=== PATIENT | female | born 1950 | race Caucasian/White ===

== ENCOUNTER 2017-10-04 11:55 | Emergency (ER) | payer MEDICARE, OTHER, SELFPAY ==
[2017-10-04 11:56] VITALS: BP 179/91; PULSE 106; RESP 20; TEMP 36.6; O2SAT 98; BMI 26.7
--- NOTE | 2017-10-04 12:02 | RAD_ITS ---
STUDY: X-RAY CHEST REASON FOR EXAM: Female, 67 years old. chest discomfort x several days, irregular heart beat, high blood pressure TECHNIQUE: Single AP portable view of the chest. COMPARISON: None. FINDINGS: The lungs are clear and expanded. There is no demonstrated pleural abnormality. Normal size heart. Normal mediastinum and nichelle. Normal visualized pulmonary arteries. There is atherosclerotic tortuosity of the aortic arch and descending thoracic aorta. Normal visualized thoracic spine. Normal visualized ribs, clavicles, and shoulders. There is no demonstrated abnormality of the visualized soft tissue structures of the upper abdomen. RAD/Chest 1 View (Portable) IMPRESSION: No acute disease is demonstrated. Electronically Signed: Sintia Atkins MD at 13:13 EST , Service support ,
--- NOTE | 2017-10-04 12:02 | EKG12_ITS ---
Test Reason : CP Blood Pressure : / mmHG Vent. Rate : 101 BPM Atrial Rate : 101 BPM P-R Int : 178 ms QRS Dur : 090 ms QT Int : 360 ms P-R-T Axes : 045 -10 040 degrees QTc Int : 466 ms Sinus tachycardia with occasional Premature ventricular complexes Otherwise normal ECG Confirmed by RIDGE CUNNINGHAM, ANDREA ([id number]), publications editor ANTIONETTE CALIXTO ([id number]) on 10/07/2017 2:04:42 PM Referred By: ARIANA Confirmed By:ANDREA SABILLON MD
[2017-10-04 12:04] VITALS: O2SAT 98
[2017-10-04 12:15] LABS: Absolute Lymphocyte Count 1.61 X10^3/ul (0.83-4.51); Absolute Neutrophil Count 2.5 X10^3/uL (2.0-7.7); Basophil# 0.02 X10^3/uL; Basophil% 0.4 % (0-1); Eosinophils% 2.1 % (0-5); Hemoglobin 15.1 g/dl (12.0-15.0); Lymphocyte # 1.61 X10^3/ul (4.0); Lymphocyte % 34.3 % (19-41); Mean Corp Hgb Conc 34.3 g/gl (32-36); Mean Corpuscular Hgb 30.7 pg (27.0-32.0); Mean Corpuscular Volume 89.4 fL (81-99); Mean Platelet Vol. 10.7 fl (6.2-12.0); Monocyte# 0.48 X10^3/uL; Monocyte% 10.2 % (0-10); Neutrophil # 2.47 X10^3/uL (2.7-7.7); Neutrophil % 52.8 % (47-70); Platelet Count 162 K/mm3 (150-450); RBC Distribution Width SD 45.7 fl (35.1-43.9); Red Blood Count 4.92 M/mm3 (4.2-5.4); White Blood Count 4.7 K/mm3 (4.4-11.0)
[2017-10-04 12:17] LABS: POSITIVE COUNT NO; POSITIVE DIFFERENTIAL NO; POSITIVE MORPHOLOGY NO
[2017-10-04 12:30] LABS: Anion Gap 10 (5-15); BUN 14 mg/dL (7-18); BUN/Creat Ratio 14.9 RATIO (10-20); Calcium,Total 8.9 mg/dL (8.5-10.1); Chloride 102 mmol/L (98-107); Creatinine, Serum 0.94 mg/dL (0.55-1.02); EST Glomerular Filtration Rate 63 mL/min (>60); Est Glom Filt Rate - Afr Amer 77 mL/min (>60); Estimated Creatinine Clearance 44.42 ml/min; Glucose 175 mg/dL (74-106); Potassium 3.5 mmol/L (3.5-5.1); Sodium Level 137 mmol/L (136-145)
--- NOTE | 2017-10-04 12:33 | ED.DCSUM_ITS ---
- ER Visit Summary Date of Service: 10/04/17 Chief Complaint: [] Rapid heart beating while in mu-ism History of Present Illness: The patient is a 67 F [] she of insulin dependent diabetes mellitus she indicates she has occasional extra heartbeats, she indicates she was sitting in mu-ism when she suddenly felt her heart racing she felt some chest discomfort she thought it would go away did not she then walked out of mu-ism thinking that that would help her symptoms it did not and she persisted having rapid heartbeat for about an hour she had no associated fever cough abdominal discomfort no radiation no syncope no lightheadedness. She has no history of MA PE DVT. By the time she was brought to the emergency department symptoms stopped she is currently in sinus rhythm on the monitor with occasional PVC she has no history of V. tach A. fib flutter Physical Examination: [] Her with occasional PVC her vital signs are normal her pulse ox is 98% HEENT exam is unremarkable her neck is supple her lungs are clear heart tones are normal regular the abdomen soft nontender upper lower extremities unremarkable neurologic she awake moving all 4 Test Results: [] Emergency Department Course and Treatment: [] In all the above screening labs EKG The patient's EKG labs generally unremarkable please see those reports she is remained in the manufacturing sr engineer she has had no dysrhythmia but she has had PVCs about 2 every minute, she feels fine I discussed with her and her family the differential diagnosis would could include V. tach A. fib flutter other causes for the tachycardia palpitations we discussed inpatient versus outpatient management I explained we could arrange for admission, the patient declined admission stating that she felt fine that she wanted to go home she did prefer to follow-up as an outpatient with her primary care doctor in addition I gave her the number to on-call cardiology to follow-up for an appointment she does agree to return for change in symptoms Treatment Plan: [] Disposition: [] Home stable, patient declined admission Impression: [] Palpitations tachycardia resolved etiology unclear This note was generated with [employer] dictation software. It may contain incorrect words, spelling, and punctuation that were not noted in review of the chart prior to signing ED Disposition - Plan for ED Patient: Chief Complaint: Chest Pain Referrals: Rod Jang MD [Primary Care Provider] -
[2017-10-04 12:43] LABS: BNP,B-Type NATRIURETIC PEPTIDE 39.4 pg/mL (0-100)
--- NOTE | 2017-10-04 14:42 | ED.DEP ---
ED Disposition - Plan for ED Patient: Chief Complaint: Chest Pain Instructions: ED Palpitations Referrals: Rod Jang MD [Primary Care Provider] - Schuyler Sanchez MD [STAFF PHYSICIAN] -
[2017-10-04 14:54] VITALS: BP 135/84; PULSE 95; RESP 16
== END 2017-10-04 14:55 | disposition home or self-care (01) ==
PROVIDERS: Emergency Provider Emergency Medicine; Family Provider Family Medicine; PCP Family Medicine
DX: R00.2 Palpitations (principal); R00.0 Tachycardia, unspecified; I49.3 Ventricular premature depolarization; R07.89 Other chest pain; E10.9 Type 1 diabetes mellitus without complications; Z79.82 Long term (current) use of aspirin; Z79.4 Long term (current) use of insulin; Z79.899 Other long term (current) drug therapy
CPT/HCPCS: 71045; 80048; 83880; 84484; 85025; 93005; 99285; J7030; A4216

== ENCOUNTER → 2017-10-26 10:49 | Outpatient (CLI) | payer MEDICARE, OTHER, SELFPAY ==
--- NOTE | 2017-10-26 10:54 | ECHOD_ITS ---
Reason For Study: palpitations Procedure This was a 2D Doppler, Color Flow transthoracic echocardiogram. Exam performed in department. Left Ventricle Normal LV size. Left ventricular systolic function is normal. The estimated ejection fraction is 75 %. Normal diastology for age. No regional wall motion abnormalities noted. Right Ventricle Normal right ventricle. Normal systolic function. Atria Normal left atrium. Normal right atrium. Mitral Valve Normal mitral valve. Tricuspid Valve Normal tricuspid valve. Aortic Valve Normal aortic valve. Trisinus/trileaflet aortic valve. Pulmonic Valve Normal pulmonic valve. Great Vessels Normal aortic root. The pulmonary artery is normal size. Normal inferior vena cava. Pericardium/Pleural No pericardial effusion. MMode/2D Measurements & Calculations LVIDd: 4.0 cm IVSd: 1.0 cm Ao root diam: 2.9 cm LVIDs: 2.8 cm LVPWd: 0.94 cm LA dimension: 3.1 cm RVDd: 2.9 cm FS: 28.5 % LAV(MOD-bp): 33.1 ml LA A4 area: 12.1 cm2 RA A4 area: 9.7 cm2 LAV(MOD-bp) Indexed: 21.2 ml/m2 LAV(MOD-sp2): 31.1 ml LAV(MOD-sp4): 29.7 ml Doppler Measurements & Calculations Ao V2 max: 122.2 cm/sec LV V1 max: 121.2 cm/sec PA V2 max: 83.3 cm/sec Ao max P.3 mmHg LV V1 max P.9 mmHg TR max ceasar: 210.4 cm/sec TR max P.7 mmHg Interpretation Summary Normal LV size. Left ventricular systolic function is normal. The estimated ejection fraction is 75 %. Normal diastology for age. Structurally normal valves. Ordering Physician: Rod Jang Referring Physician: Rod Jang Performed By: Beverley Pierce, STEWART, RVT
--- NOTE | 2017-10-26 12:15 | EKG12_ITS ---
Test Reason : PVC Blood Pressure : / mmHG Vent. Rate : 105 BPM Atrial Rate : 105 BPM P-R Int : 180 ms QRS Dur : 088 ms QT Int : 348 ms P-R-T Axes : 058 006 049 degrees QTc Int : 459 ms Sinus tachycardia Nonspecific ST abnormality Abnormal ECG Confirmed by CARLOTA CUNNINGHAM, SILVERIO ([id number]), loan expeditor ANTIONETTE CALIXTO ([id number]) on 10/28/2017 4:13:15 PM Referred By: Rod Jang Confirmed By:SILVERIO VAN MD
--- NOTE | 2017-10-26 17:38 | STRESSREP ---
Stress Test Report Exercise stress test. 67-year-old lady with a history of chest pain. Stress protocol: Resting EKG demonstrates normal sinus rhythm with a rate of 85 bpm. Resting blood pressure is 142/80 mmHg. The patient exercised according to the regular Carroll protocol for total duration of 9 minutes. The patient completed stage III of the Carroll protocol. The maximum heart rate attained was 155 bpm which was 100% of maximum predicted heart rate the maximum workload attained was 10.1 metabolic equivalents. At rest there were no ST or T-wave changes noted suggest ischemia peak exercise upsloping ST changes only were noted would not be the criteria for ischemia. No clinical angina was noted the test was terminated due to shortness of breath and leg discomfort. The resting blood pressure is 142/80 with a peak blood pressure 182/74. Rate pressure product was 28,200. No clinical angina was noted no arrhythmias were noted. Conclusion: Exercise stress test with no EKG criteria for ischemia at a high workload Good functional aerobic capacity. No clinical angina
== END ==
PROVIDERS: Family Provider Family Medicine; PCP Family Medicine; Visit Provider Family Medicine
DX: R07.89 Other chest pain (principal); R00.2 Palpitations
CPT/HCPCS: 93005; 93017; 93225; 93226; 93306

== ENCOUNTER → 2018-06-02 08:28 | Outpatient (CLI) | payer MEDICARE, OTHER, SELFPAY ==
--- NOTE | 2018-06-02 08:31 | BI_ITS ---
MAMMOGRAPHY - BILATERAL SCREENING REASON FOR EXAM: Female, 67 years old. Routine annual screening examination. PERTINENT HISTORY: Non-contributory. TECHNIQUE: Digital bilateral breast brandie (3D mammographic acquisition) in the CC and MLO projections. 2-D mediolateral oblique (MLO) and craniocaudad (CC) views of both breasts were obtained. CAD: Full Field Digital Mammography with Computer Added Detection was performed. COMPARISON: Comparison is made with prior study dated June 01, 2017 and May 01, 2016. FINDINGS: Breast Composition: The breasts are heterogeneously dense, which may obscure small masses. There are no dominant masses or suspicious calcifications. No other significant abnormalities are identified. There has been no significant change since the prior study. BI/SCREENING MAMM (CAD), BILAT IMPRESSION: Stable bilateral screening mammogram. Yearly follow-up mammogram recommended. (A) ASSESSMENT CATEGORY: BIRADS Category 1: Negative. A letter regarding these results will be sent to the patient by the facility within 30 days. Approximately 10% of breast cancers are not detected by mammography. A normal mammogram should not delay biopsy of a clinically suspicious abnormality. [id number] Electronically Signed: Donald Meredith MD at 11:16 EDT Tel [phone], Service support ,
== END ==
PROVIDERS: Family Provider Family Medicine; PCP Family Medicine; Visit Provider Obstetrics & Gynecology
DX: Z12.31 Encounter for screening mammogram for malignant neoplasm of breast (principal)
CPT/HCPCS: 77063; 77067

== ENCOUNTER → 2019-06-03 07:55 | Outpatient (CLI) | payer MEDICARE, OTHER, SELFPAY ==
[2018-12-14 09:32] VITALS: BMI 24.3
--- NOTE | 2019-06-03 07:57 | BI_ITS ---
MAMMOGRAPHY - BILATERAL SCREENING REASON FOR EXAM: Female, 68 years old. Routine annual screening examination. PERTINENT HISTORY: Non-contributory. TECHNIQUE: Digital bilateral breast teri (3D mammographic acquisition) in the CC and MLO projections. 2-D mediolateral oblique (MLO) and craniocaudad (CC) views of both breasts were obtained. CAD: Full Field Digital Mammography with Computer Added Detection was performed. COMPARISON: Comparison is made with prior study dated June 02, 2018 and June 01, 2017. FINDINGS: Breast Composition: The breasts are heterogeneously dense, which may obscure small masses. There are no dominant masses or suspicious calcifications. No other significant abnormalities are identified. There has been no significant change since the prior study. BI/SCREEN MAMM (CAD) W/TERI BILAT IMPRESSION: Stable bilateral screening mammogram. Yearly follow-up mammogram recommended. (A) ASSESSMENT CATEGORY: BIRADS Category 1: Negative. A letter regarding these results will be sent to the patient by the facility within 30 days. Approximately 10% of breast cancers are not detected by mammography. A normal mammogram should not delay biopsy of a clinically suspicious abnormality. [id number] Electronically Signed: Donald Meredith, at 9:04 EDT , Service support ,
== END ==
PROVIDERS: Family Provider Family Medicine; PCP Family Medicine; Referring Provider Obstetrics & Gynecology; Visit Provider Obstetrics & Gynecology
DX: Z12.31 Encounter for screening mammogram for malignant neoplasm of breast (principal)
CPT/HCPCS: 77063; 77067

== ENCOUNTER → 2020-06-04 15:36 | Outpatient (CLI) | payer MEDICARE, OTHER, SELFPAY ==
[2018-12-14 09:32] VITALS: BMI 24.3
--- NOTE | 2020-06-04 15:38 | BI_ITS ---
MAMMOGRAPHY - BILATERAL SCREENING REASON FOR EXAM: Female, 69 years old. Routine annual screening examination. PERTINENT HISTORY: Non-contributory. TECHNIQUE: Digital bilateral breast teri (3D mammographic acquisition) in the CC and MLO projections. 2-D mediolateral oblique (MLO) and craniocaudad (CC) views of both breasts were obtained. CAD: Full Field Digital Mammography with Computer Added Detection was performed. COMPARISON: Comparison is made with prior examination dated 06/03/2019 and 06/02/2018. FINDINGS: Breast Composition: The breasts are heterogeneously dense, which may obscure small masses. There are no dominant masses or suspicious calcifications. No other significant abnormalities are identified. There has been no significant change since the prior study. BI/SCREEN MAMM (CAD) W/TERI BILAT IMPRESSION: Stable bilateral screening mammogram. Yearly follow-up mammogram recommended. (A) ASSESSMENT CATEGORY: BIRADS Category 1: Negative. A letter regarding these results will be sent to the patient by the facility within 30 days. Approximately 10% of breast cancers are not detected by mammography. A normal mammogram should not delay biopsy of a clinically suspicious abnormality. [id number] Electronically Signed: Donald Meredith, at 8:17 EDT , Service support ,
== END ==
PROVIDERS: PCP Family Medicine; Referring Provider Obstetrics & Gynecology; Visit Provider Obstetrics & Gynecology
DX: Z12.31 Encounter for screening mammogram for malignant neoplasm of breast (principal)
CPT/HCPCS: 77063; 77067

== ENCOUNTER → 2021-06-05 07:58 | Outpatient (CLI) | payer MEDICARE, OTHER, SELFPAY ==
--- NOTE | 2021-06-05 08:06 | BI_ITS ---
MAMMOGRAPHY - BILATERAL SCREENING REASON FOR EXAM: Female, 70 years old. Routine annual screening examination. PERTINENT HISTORY: Sister with breast cancer. TECHNIQUE: Digital bilateral breast teri (3D mammographic acquisition) in the CC and MLO projections. 2-D mediolateral oblique (MLO) and craniocaudad (CC) views of both breasts were obtained. CAD: Full Field Digital Mammography with Computer Added Detection was performed. COMPARISON: Comparison is made with prior study 06/04/2020 and 06/03/2019. FINDINGS: Breast Composition: The breasts are heterogeneously dense, which may obscure small masses. There are no dominant masses or suspicious calcifications. No other significant abnormalities are identified. There has been no significant change since the prior study. BI/SCRN MAMM (CAD)W/TERI BILAT IMPRESSION: Stable bilateral screening mammogram. Yearly follow-up mammogram recommended. (A) ASSESSMENT CATEGORY: BIRADS Category 1: Negative. A letter regarding these results will be sent to the patient by the facility within 30 days. Approximately 10% of breast cancers are not detected by mammography. A normal mammogram should not delay biopsy of a clinically suspicious abnormality. [id number] Electronically Signed: Donald Meredith MD at 9:05 EDT , Service support ,
== END ==
PROVIDERS: PCP Family Medicine; Referring Provider Obstetrics & Gynecology; Visit Provider Obstetrics & Gynecology
DX: Z12.31 Encounter for screening mammogram for malignant neoplasm of breast (principal); Z80.3 Family history of malignant neoplasm of breast
CPT/HCPCS: 77063; 77067

== ENCOUNTER → 2022-06-10 | Outpatient (CLI) | payer MEDICARE, OTHER, SELFPAY ==
--- NOTE | 2022-06-10 09:06 | BI_ITS ---
MAMMOGRAPHY - BILATERAL SCREENING REASON FOR EXAM: Female, 71 years old. Routine annual screening examination. PERTINENT HISTORY: Non-contributory. TECHNIQUE: Digital bilateral breast teri (3D mammographic acquisition) in the CC and MLO projections. 2-D mediolateral oblique (MLO) and craniocaudad (CC) views of both breasts were obtained. CAD: Full Field Digital Mammography with Computer Added Detection was performed. COMPARISON: Comparison is made with prior study 06/05/2021 and 06/04/2020. FINDINGS: Breast Composition: The breasts are heterogeneously dense, which may obscure small masses. There are no dominant masses or suspicious calcifications. No other significant abnormalities are identified. There has been no significant change since the prior study. BI/SCRN MAMM (CAD)W/TERI BILAT IMPRESSION: Stable bilateral screening mammogram. Yearly follow-up mammogram recommended. (A) ASSESSMENT CATEGORY: BIRADS Category 1: Negative. A letter regarding these results will be sent to the patient by the facility within 30 days. Approximately 10% of breast cancers are not detected by mammography. A normal mammogram should not delay biopsy of a clinically suspicious abnormality. [id number] Electronically Signed: Donald Meredith MD at 10:25 EDT ,
== END | disposition home or self-care (01) ==
LOC: OPBI 09:03
PROVIDERS: PCP Family Medicine; Referring Provider Obstetrics & Gynecology; Visit Provider Obstetrics & Gynecology
DX: Z12.31 Encounter for screening mammogram for malignant neoplasm of breast (principal)
CPT/HCPCS: 77063; 77067

== ENCOUNTER 2022-10-27 14:04 | Observation (INO) | payer MEDICARE, OTHER, SELFPAY ==
[2022-10-27] VITALS (11 sets, daily range): BP systolic 163–202; BP diastolic 90–104; PULSE 96–113; RESP 12–18; TEMP 36.3–36.8; O2SAT 95–99; BMI 25.3; BMI 25.2; BMI 24.3
--- NOTE | 2022-10-27 14:08 | ED.RN ---
NO STROKE ALERT CALLED PER DR SANTO
--- NOTE | 2022-10-27 14:51 | TELEMED_ITS ---
[facility] has confirmed receipt of a request for visit. This document confirms receipt of the order initiating the consult. To find the results of the consultation, please view the patient's reports for the scanned Telemed Consult.
--- NOTE | 2022-10-27 14:52 | EKG12_ITS ---
Test Reason : NEURO Blood Pressure : / mmHG Vent. Rate : 106 BPM Atrial Rate : 106 BPM P-R Int : 190 ms QRS Dur : 090 ms QT Int : 344 ms P-R-T Axes : 053 -05 046 degrees QTc Int : 456 ms Sinus tachycardia Possible Left atrial enlargement Nonspecific ST abnormality Abnormal ECG Confirmed by RIDGE CUNNINGHAM, ANDREA ([id number]), restaurant expeditor MASSIMO FLORES ([id number]) on 10/29/2022 9:48:19 AM Referred By: Confirmed By:ANDREA SABILLON MD
--- NOTE | 2022-10-27 14:52 | CT_ITS ---
We are attempting to reach an attending provider to discuss findings. An addendum with communication details will be sent when the communication is complete. INDICATION: Neuro deficit, acute, stroke suspected EXAMINATION: CT Head Stroke Protocol W/O Contrast Injection TECHNIQUE: Multiple axial images were obtained of the head without intravenous contrast. A radiation dose optimization technique was used for this scan. IV Contrast dosage and agent: None. COMPARISON: None. FINDINGS: BRAIN PARENCHYMA: No intra- or extra-axial hemorrhage. No evidence of acute infarct. No intracranial mass or mass effect.No vasogenic edema. There is preservation of the adams/white matter interface. Mild parenchymal volume loss and small vessel ischemic disease change. Posterior fossa structures are unremarkable. CSF SPACES: Appropriate for age. No hydrocephalus. Basal cisterns are patent. No abnormal extra-axial fluid collection. No focal dense vessel sign. CALVARIUM, SKULL BASE, PARANASAL SINUSES AND MASTOID AIR CELLS: Clear. No discrete lytic or blastic abnormalities. ORBITS: Both globes, extraocular muscles, optic nerves and retrobulbar fat appear unremarkable. ASPECTS Score for Acute Strokes: 10 CT/STROKE Brain/Head without Cont IMPRESSION: No acute intracranial findings. Electronically Signed: Hernan Robles MD at 15:59 EDT ,
--- NOTE | 2022-10-27 14:53 | EDS_ITS ---
HPI History of Present Illness Chief Complaint: Neuro S/Sx Informant: patient Narrative Narrative: Patient presents with an episode of visual changes and left facial numbness that occurred earlier today and is now fully resolved. Patient states that about 930 or 10 this morning she had some twitching in the muscles of the left side of her face. She did not think anything of this because this is not an uncommon occurrence for her. That came and went as it would normally. Later in the morning at approximately 1140 she had flashing lights almost like a strobe effect in her left eye only. She then noticed that the left side of her face seemed just slightly altered sensation. She states it was not at all. But it just seemed like it felt different. All the symptoms resolved in about 40 minutes and have remained resolved. She states she went into the bathroom. She looked in the mirror. She smiled and moved her face and had no visible weakness. She can move her hands and legs. Her speech was perfectly clear. She states she could see no deficit. Patient states that she has never had this before but she does state that her symptoms were almost like an aura. When I talk to her about this I find out she has had ocular migraines. Where she gets flashing lights but she does not know if she ever had the facial numbness feeling. She has only had these ocular symptoms about 6 times before. But she was also concerned because her blood pre ssure seemed high today. She did take her medicine. She normally runs about 130s over 70s. She has no history of A-fib or palpitations. She does have history of occasional PVCs. She states since this event she just does not feel right but cannot define that any further. [facility] Medical History (Updated 10/27/22 @ 21:[address] Chato Stark MD) Diabetes mellitus type I Glaucoma Hyperlipidemia Hypertension Hypothyroidism Osteoarthritis Premature ventricular contractions Home Medications cholecalciferol (vitamin D3) 50 mcg (2,000 unit) capsule 2,000 unit PO DAILY 10/04/17 [History Last Taken Unknown] insulin lispro 100 unit/mL subcutaneous cartridge 0 unit SQ TID 10/04/17 [History Last Taken Unknown] levothyroxine 75 mcg tablet 75 mcg PO DAILY 10/04/17 [History Last Taken Unknown] qiymzncqyhba-Ms-ljyg-minerals 1 ea PO DAILY 10/04/17 [History Last Taken Unknown] cwwox6-gkl-ssu-other dxork2x-eubv oil 360 mg-1,200 mg capsule 2 tab PO BID 10/04/17 [History Last Taken Unknown] Lactobacills gasseri-Bifidobac bifidum,longum 1.5 billion cell capsule ([facility] [employer] [employer]) cap PO .q day 12/07/17 [History Last Taken Unknown] acetaminophen 650 mg tablet,extended release (Tylenol Arthritis Pain) 650 mg PO Q8H PRN arthritis 12/07/17 [History Last Taken Unknown] conjugated estrogens 0.625 mg/gram vaginal cream (Premarin) See Rx Instructions vaginal .COMPLEX 12/07/17 [History Last Taken Unknown] latanoprost 0.005 % eye drops 1 drp ophthalmic (eye) QPM 12/07/17 [History Last Taken Unknown] loratadine 10 mg tablet (Claritin) 10 mg PO QDAY 12/07/17 [History Last Taken Unknown] ramipril 1.25 mg capsule 1.25 mg PO QDAY 12/07/17 [History Last Taken Unknown] insulin glargine 100 unit/mL subcutaneous solution 18 unit subcut QHS 12/09/17 [History Last Taken Unknown] calcium citrate 315 mg calcium-vitamin D3 6.25 mcg (250 unit) tablet 1 tab PO DAILY 12/14/18 [History Last Taken Unknown] dicyclomine 10 mg capsule 10 mg PO .COMPLEX PRN Cramps 12/14/18 [History Last Taken Unknown] naproxen 250 mg tablet 250 mg PO .COMPLEX PRN Pain 12/14/18 [History Last Taken Unknown] Allergy/AdvReac Type Severity Reaction Status Date / Time ezetimibe [From Zetia] AdvReac Severe Abd Verified 10/27/22 14:07 cramps/diarrhea atorvastatin [From Lipitor] AdvReac Intermediate myalgias Verified 10/27/22 14:07 enalapril AdvReac Intermediate hypotension Verified 10/27/22 14:07 levofloxacin [From Levaquin] AdvReac Intermediate numbness Verified 10/27/22 14:07 and tingling lovastatin AdvReac Intermediate muscle Verified 10/27/22 14:07 spasms niacin AdvReac Intermediate Flushing, Verified 10/27/22 14:07 can't sleep, leg cramps prednisone AdvReac Intermediate Anxious, Verified 10/27/22 14:07 itchy, puffy after first dose 40 mg rosuvastatin [From Crestor] AdvReac Intermediate GI upset, Verified 10/27/22 14:07 abdominal cramping simvastatin AdvReac Intermediate Myalgias Verified 10/27/22 14:07 acetaminophen AdvReac Unknown Nausea/Vom/ Verified 10/27/22 14:07 [From Tylenol-Codeine] Diarrhea cephalexin AdvReac Unknown unknown Verified 10/27/22 14:07 codeine AdvReac Unknown Nausea/Vom/ Verified 10/27/22 14:07 [From Tylenol-Codeine] Diarrhea iodine AdvReac Unknown unknown Verified 10/27/22 14:07 nalbuphine [From Nubain] AdvReac Unknown unknown Verified 10/27/22 14:07 Family History Mother Hypertension Diabetes Kidney disease CAD (coronary artery disease) Myocardial infarction Father Hypertension COPD (chronic obstructive pulmonary disease) Cancer Brain aneurysm Congestive heart failure Sister Diabetes Daughter Raynaud disease Meniere disease Daughter Thyroid cancer Sister Diabetes Surgical History History of appendectomy History of section History of cholecystectomy History of colonoscopy History of D&C History of laparoscopy History of tubal ligation Social History (Updated 12/14/18 @ 16:59 by Corrie Lemon PA, PA) Smoking Status: Never smoker alcohol intake: never substance use type: does not use caffeine: No ROS ROS ED Constitutional Constitutional ED: Denies chills, fever(s) or subjective Eyes Eyes: Reports change in vision; Denies blurry vision or diplopia ENT ENT ED: Denies rhinorrhea or sore throat Cardiovascular Cardiovascular: Denies chest pain, palpitations or racing heartbeat Respiratory/Chest Respiratory/Chest: Denies cough or dyspnea Gastrointestinal Gastrointestinal: Denies nausea or vomiting Genitourinary Genitourinary ED: Denies dysuria Musculoskeletal Musculoskeletal: Denies back pain, myalgias or neck pain Integumentary Denies rash Neurologic Neurologic: Reports paresthesias; Denies headache(s) or weakness Endocrine Endocrinology: Denies polydipsia or polyuria Hematologic/Lymphatic Hematologic/Lymphatic: Denies easy bleeding or easy bruising Allergic/Immunologic Allergic/Immunologic ED: Denies urticaria EXAM Physical Exam Narrative Exam Narrative: Patient is awake alert no acute distress sitting comfortably in bed and looks nontoxic. No obvious deficit from the doorway. HEENT shows no rash. She has normal range of motion of smiling cheeks closing h er eyes etc. No sign of trauma. Eyes show no limitation of range of motion. Visual alvarez are normal by confrontation. Neck shows no JVD or pain with motion. No bruit. Lungs are completely clear bilaterally. Heart is regular. Her rate here is about 90 I do not hear murmur or muffled tones. Peripheral pulses are normal and equal. Abdomen is soft completely nontender Extremities show no swelling tenderness asymmetry. Neuro shows an NIH of 0. There is no sensory or motor changes. Her speech is perfect and fluent. And she feels her symptoms are resolved now. Const Vital Signs: 10/27/22 14:05 10/27/22 15:17 10/27/22 15:17 Temperature 97.4 F L Temperature Source Temporal Pulse Rate 109 H 113 H Respiratory Rate 16 16 Blood Pressure 202/94 H 180/96 H Blood Pressure Mean 130 124 Pulse Ox 99 Oxygen Delivery Method Room Air Room Air Room Air 10/27/22 15:30 10/27/22 16:00 10/27/22 16:30 Temperature Temperature Source Pulse Rate 113 H 106 H 107 H Respiratory Rate 16 13 12 Blood Pressure 184/94 H 187/92 H 172/92 H Blood Pressure Mean 124 123 118 Pulse Ox 97 97 Oxygen Delivery Method Room Air Room Air 10/27/22 17:00 10/27/22 17:30 10/27/22 18:00 Temperature Temperature Source Pulse Rate 109 H 111 H 109 H Respiratory Rate 16 18 17 Blood Pressure 182/93 H 182/93 H 172/104 H Blood Pressure Mean 122 122 126 Pulse Ox 97 Oxygen Delivery Method 10/27/22 19:20 Temperature 98.0 F Temperature Source Temporal Pulse Rate 96 Respiratory Rate 18 Blood Pressure 163/90 H Blood Pressure Mean 114 Pulse Ox 96 Oxygen Delivery Method Room Air MDM MDM MDM Narrative Medical decision making narrative: My independent interpretation of her CT shows no acute bleeding. Final reading is essentially negative. My independent interpretation of her single AP chest x-ray shows no acute process which is consistent with the final reading. CBC is overall normal other than minimal elevation of the hemoglobin to 15.1. Coags are normal. Electrolytes show no marked abnormalities. Troponin is negative. I discussed the results of the CT with the radiologist. I discussed the case and results with SOC neurologist. She agrees that this was a likely migraine. But with the patient's elevated blood pressure, risk factors it is appropriate to admit her for MRI as she certainly has risks for stroke also. The case was discussed with the hospitalist. Lab Data Attestation: I reviewed the patient's lab results. Labs: Laboratory Results - last 24 hr 10/27/22 10/27/22 10/27/22 15:05 15:05 15:05 WBC 7.5 RBC 4.86 Hgb 15.1 H Hct 43.8 MCV 90.1 MCH 31.1 MCHC 34.5 RDW Std Deviation 43.8 RDW Coeff of Nely 13.2 Plt Count 219 MPV 10.2 Immature Gran % (Auto) 0.300 Neut % (Auto) 78.3 H Lymph % (Auto) 13.8 L Mccone % (Auto) 6.7 Eos % (Auto) 0.4 Baso % (Auto) 0.5 Absolute Neuts (auto) 5.9 Absolute Lymphs (auto) 1.03 Nucleated RBC % 0 PT 12.6 INR 1.0 APTT 26.3 Sodium 135 L Potassium 3.6 Chloride 98 Carbon Dioxide 28.0 Anion Gap 9 BUN 12 Creatinine 0.92 Estim Creat Clear Calc 42.32 Est GFR (MDRD) Af Amer 77 Est GFR (MDRD) Non-Af 64 BUN/Creatinine Ratio 13.0 Glucose 230 H Calcium 9.5 Troponin I High Sens 6 Radiography Diagnostic Testing: Clinical Impression(s) from Imaging Studies Brain CT 10/27/22 14:52 IMPRESSION: No acute intracranial findings. Electronically Signed: Hernan Robles MD at 15:59 EDT , ADDENDUM: 10/27/22 8015 IMPRESSION: No acute intracranial findings. N.B. : The above Results were Read Back by Hernan Robles MD to Chato Stark MD, and understanding confirmed on 10/27/2022 15:59:28 (ET). Electronically Signed: Hernan Robles MD at 15:59 EDT , Chest X-Ray 10/27/22 15:45 IMPRESSION: No acute cardiopulmonary disease. Electronically Signed: Hernan Robles MD at 16:11 EDT , EKG Initial EKG: Comments: My independent interpretation the patient's EKG as part of neurologic work-up shows sinus rhythm with tachycardic rate at 106. No ventricular ectopy. No acute ST elevation or depression. MN interval, QRS duration and QTc are within normal. Discharge Plan Dx/Rx/DC Orders Clinical Impression: Transient neurologic deficit, Transient vision disturbance, History of diabetes mellitus, type I, History of hypertension Disposition Disposition: Acute Care Hospital [facility] Discharge Date/Time: 10/27/22 20:12
[2022-10-27 15:11] LABS: Absolute Lymphocyte Count 1.03 X10^3/uL (0.83-4.51); Absolute Neutrophil Count 5.9 X10^3/uL (2.0-7.7); Basophil# 0.04 X10^3/uL; Basophil% 0.5 % (0-1); Eosinophil# 0.03 X10^3/uL; Eosinophils% 0.4 % (0-5); Hematocrit 43.8 % (37-47); Hemoglobin 15.1 g/dL (12.0-15.0); Lymphocyte # 1.03 X10^3/ul (0.83-4.51); Lymphocyte % 13.8 % (19-41); Mean Corp Hgb Conc 34.5 g/dL (32-36); Mean Corpuscular Hgb 31.1 pg (27.0-32.0); Mean Corpuscular Volume 90.1 fL (81-99); Mean Platelet Vol. 10.2 fl (6.2-12.0); Monocyte% 6.7 % (0-10); NRBC Flagged by Analyzer 0 % (0-5); Neutrophil # 5.86 X10^3/uL (2.7-7.7); Neutrophil % 78.3 % (47-70); Platelet Count 219 K/mm3 (150-450); RBC Distribution Width CV 13.2 % (11.6-14.6); RBC Distribution Width SD 43.8 fl (35.1-43.9); Red Blood Count 4.86 M/mm3 (4.2-5.4); White Blood Count 7.5 K/mm3 (4.4-11.0)
[2022-10-27 15:20] LABS: Partial Thromboplast Time 26.3 Seconds (24.1-36.2); Prothrombin Time (Protime)PT. 12.6 SECONDS (11.7-14.9)
--- NOTE | 2022-10-27 15:23 | CHAPLAIN ---
Type of Pastoral Visit ___ Initial Visit ___ Follow-up Visit ___ On-call Visit ___ General Patient Visit ___ Spiritual Assessment ___ Family Conference ___ Bereavement _x__ Rapid Response ___ Code Blue ___ Other (describe below) Pastoral Care Referral From ___ Patient ___ Family ___ Nurse ___ Physician ___ Family Practice Md ___ Sas Developer Analyst _x__ Other (describe below) Sacrament/Intervention _x__ Active listening ___ Anointing ___ Temple ___ Bereavement ___ Communion ___ Rachel exploration ___ ___ Life review ___ Prayer ___ Reconciliation ___ Sacrament of Sick _x__ Supportive presence ___ Wedding ___ Other (describe below) Pastoral Comments responded to this stroke alert in the ED; met with spouse and daughter as patient was in CT; offered support and presence; family members state that they are fine although a little shaken by the sudden change for pt; SW also available for assistance at this time; family does not seek further assistance
[2022-10-27 15:29] LABS: Anion Gap 9 (5-15); BUN 12 mg/dL (7-18); Calcium,Total 9.5 mg/dL (8.5-10.1); Chloride 98 mmol/L (98-107); Creatinine, Serum 0.92 mg/dL (0.55-1.02); EST Glomerular Filtration Rate 64 mL/min (>60); Est Glom Filt Rate - Afr Amer 77 mL/min (>60); Estimated Creatinine Clearance 42.32 ml/min; Glucose 230 mg/dL (74-106); Potassium 3.6 mmol/L (3.5-5.1); Sodium Level 135 mmol/L (136-145); Troponin-I HS 6 pg/mL (3.0-54.0)
--- NOTE | 2022-10-27 15:45 | RAD_ITS ---
INDICATION: Neuro deficit, acute, stroke suspected EXAMINATION/TECHNIQUE: X-RAY - XR Chest 1 View COMPARISON: October 05, 2017 chest x-ray. FINDINGS: LINES/DEVICES: None. LUNGS: No focal airspace consolidation or pleural effusion. No pneumothorax. MEDIASTINUM AND CARDIOVASCULAR STRUCTURES: Cardiac silhouette not enlarged. Central airways and mediastinal contour are unremarkable. BONES AND SOFT TISSUES: Mild rightward curvature of the thoracic spine. Stable degenerative changes. RAD/Chest 1 View IMPRESSION: No acute cardiopulmonary disease. Electronically Signed: Hernan Robles MD at 16:11 EDT ,
--- NOTE | 2022-10-27 18:21 | ED.RN ---
DR. SANTO CONFIRMED ED COULD D/C [facility]
--- NOTE | 2022-10-27 19:34 | PCM.HP.STD ---
HPI - General General Date of Admission: 10/27/22 Date of Service: 10/27/22 Chief Complaint: Left-sided facial numbness HPI Narrative NOLA LINDO, is a 72 F with a history of type 1 diabetes/HIRA, hypothyroidism, hypertension who presented to [facility] 10/27/2022 with abnormal facial sensation in the lower half of her left face that happened earlier in the morning with some vision changes. Symptoms resolved by the time she presented, SOC evaluated in the emergency department and still recommended stroke work-up given risk factors. CT head in ED no acute changes. Hospitalist consulted for admission. Patient seen at bedside with family member and endorsed having some left-sided facial twitching at 10 AM which is happened before and this resolved however at 11:40 AM the lower part of the left side of her face had somewhat diminished sensation and she had some flashing lights in her vision on that side. She looked in the mirror and her facial movements were symmetric when she was moving all extremities the same, had no difficulty talking or swallowing. By the time she presented to the emergency department her symptoms had resolved. Denies any chest pain or shortness of breath, denies any other complaints at this time. [facility] Medical History (Updated 10/27/22 @ 19:[address] Malaika Gallegos MD) Diabetes mellitus type I Glaucoma Hyperlipidemia Hypertension Hypothyroidism Osteoarthritis Premature ventricular contractions Home Medications cholecalciferol (vitamin D3) 50 mcg (2,000 unit) capsule 2,000 unit PO DAILY 10/04/17 [History Last Taken Unknown] insulin lispro 100 unit/mL subcutaneous cartridge 0 unit SQ TID 10/04/17 [History Last Taken Unknown] levothyroxine 75 mcg tablet 75 mcg PO DAILY 10/04/17 [History Last Taken Unknown] nnrvktqxeolu-Hr-hpay-minerals 1 ea PO DAILY 10/04/17 [History Last Taken Unknown] -wdm-upe-other nycxt7g-vtsx oil 360 mg-1,200 mg capsule 2 tab PO BID 10/04/17 [History Last Taken Unknown] Lactobacills gasseri-Bifidobac bifidum,longum 1.5 billion cell capsule ([employer]) cap PO .q day 12/07/17 [History Last Taken Unknown] acetaminophen 650 mg tablet,extended release (Tylenol Arthritis Pain) 650 mg PO Q8H PRN 12/07/17 [History Last Taken Unknown] conjugated estrogens 0.625 mg/gram vaginal cream (Premarin) See Rx Instructions vaginal .COMPLEX 12/07/17 [History Last Taken Unknown] latanoprost 0.005 % eye drops 1 drp ophthalmic (eye) QPM 12/07/17 [History Last Taken Unknown] loratadine 10 mg tablet (Claritin) 10 mg PO QDAY 12/07/17 [History Last Taken Unknown] ramipril 1.25 mg capsule 1.25 mg PO QDAY 12/07/17 [History Last Taken Unknown] insulin glargine 100 unit/mL subcutaneous solution 18 unit subcut DAILY 12/09/17 [History Last Taken Unknown] calcium citrate 315 mg calcium-vitamin D3 6.25 mcg (250 unit) tablet 1 tab PO DAILY 12/14/18 [History Last Taken Unknown] dicyclomine 10 mg capsule 10 mg PO .COMPLEX PRN 12/14/18 [History Last Taken Unknown] naproxen 250 mg tablet 250 mg PO .COMPLEX PRN 12/14/18 [History Last Taken Unknown] Allergy/AdvReac Type Severity Reaction Status Date / Time ezetimibe [From Zetia] AdvReac Severe Abd Verified 10/27/22 14:07 cramps/diarrhea atorvastatin [From Lipitor] AdvReac Intermediate myalgias Verified 10/27/22 14:07 enalapril AdvReac Intermediate hypotension Verified 10/27/22 14:07 levofloxacin [From Levaquin] AdvReac Intermediate numbness Verified 10/27/22 14:07 and tingling lovastatin AdvReac Intermediate muscle Verified 10/27/22 14:07 spasms niacin AdvReac Intermediate Flushing, Verified 10/27/22 14:07 can't sleep, leg cramps prednisone AdvReac Intermediate Anxious, Verified 10/27/22 14:07 itchy, puffy after first dose 40 mg rosuvastatin [From Crestor] AdvReac Intermediate GI upset, Verified 10/27/22 14:07 abdominal cramping simvastatin AdvReac Intermediate Myalgias Verified 10/27/22 14:07 acetaminophen AdvReac Unknown Nausea/Vom/ Verified 10/27/22 14:07 [From Tylenol-Codeine] Diarrhea cephalexin AdvReac Unknown unknown Verified 10/27/22 14:07 codeine AdvReac Unknown Nausea/Vom/ Verified 10/27/22 14:07 [From Tylenol-Codeine] Diarrhea iodine AdvReac Unknown unknown Verified 10/27/22 14:07 nalbuphine [From Nubain] AdvReac Unknown unknown Verified 10/27/22 14:07 Family History Mother Hypertension Diabetes Kidney disease CAD (coronary artery disease) Myocardial infarction Father Hypertension COPD (chronic obstructive pulmonary disease) Cancer Brain aneurysm Congestive heart failure Sister Diabetes Daughter Raynaud disease Meniere disease Daughter Thyroid cancer Sister Diabetes Surgical History History of appendectomy History of section History of cholecystectomy History of colonoscopy History of D&C History of laparoscopy History of tubal ligation Social History (Updated 12/14/18 @ 16:59 by Corrie Lemon PA, PA) Smoking Status: Never smoker alcohol intake: never substance use type: does not use caffeine: No ROS ROS Narrative General: Denies fever or chills, HENT: Denies headache, denies stuffy nose, denies sore throat EYES: Denies changes in vision at this time, no more flashing lights Resp: Denies cough, denies shortness of breath Cardiac: Denies chest pain GI: Denies abdominal pain, denies changes in bowel, denies nausea, denies vomiting : Denies changes in urination Extremity: Denies swelling MSK: Denies weakness Neuro: Denies any numbness, denies tingling at this time, had the left lower facial decreased sensation earlier that has resolved Heme: Denies any bleeding or bruising Skin: Denies rashes Psychiatric: No complaints voiced Vital Signs Vital Signs Vital Signs: 10/27/22 14:05 10/27/22 15:17 10/27/22 15:17 Temperature 97.4 F L Temperature Source Temporal Pulse Rate 109 H 113 H Respiratory Rate 16 16 Blood Pressure 202/94 H 180/96 H Blood Pressure Mean 130 124 Pulse Ox 99 Oxygen Delivery Method Room Air Room Air Room Air 10/27/22 15:30 10/27/22 16:00 10/27/22 16:30 Temperature Temperature Source Pulse Rate 113 H 106 H 107 H Respiratory Rate 16 13 12 Blood Pressure 184/94 H 187/92 H 172/92 H Blood Pressure Mean 124 123 118 Pulse Ox 97 97 Oxygen Delivery Method Room Air Room Air 10/27/22 17:00 10/27/22 17:30 10/27/22 18:00 Temperature Temperature Source Pulse Rate 109 H 111 H 109 H Respiratory Rate 16 18 17 Blood Pressure 182/93 H 182/93 H 172/104 H Blood Pressure Mean 122 122 126 Pulse Ox 97 Oxygen Delivery Method 10/27/22 19:20 Temperature 98.0 F Temperature Source Temporal Pulse Rate 96 Respiratory Rate 18 Blood Pressure 163/90 H Blood Pressure Mean 114 Pulse Ox 96 Oxygen Delivery Method Room Air Weight Weight: 60.6 kg Body Mass Index (BMI) 25.2 Physical Exam Narrative General: Alert, oriented, no apparent distress HEENT: Atraumatic, normocephalic Eyes: Anicteric, normal conjunctiva, pupils equal and reactive, extraocular movements intact, several beats of nystagmus on far lateral gaze bilaterally Neck: Supple Respiratory: Clear to auscultation bilaterally, normal respiratory effort Cardiovascular: Regular rhythm, slightly tachycardic GI: Soft, nontender, nondistended Extremities: No edema Musculoskeletal: Moving all extremities, 5 out of 5 strength in upper and lower extremities Neuro: Cranial nerves II through XII intact, finger-nose without difficulty bilaterally Skin: No rashes appreciated Psych: Cooperative Results Lab / Micro Data Result Diagrams: 10/27/22 15:05 10/27/22 15:05 Labs: Laboratory Results - last 24 hr 10/27/22 15:05: WBC 7.5, RBC 4.86, Hgb 15.1 H, Hct 43.8, MCV 90.1, MCH 31.1, MCHC 34.5, RDW Std Deviation 43.8, RDW Coeff of Nely 13.2, Plt Count 219, MPV 10.2, Immature Gran % (Auto) 0.300, Neut % (Auto) 78.3 H, Lymph % (Auto) 13.8 L, [place] % (Auto) 6.7, Eos % (Auto) 0.4, Baso % (Auto) 0.5, Absolute Neuts (auto) 5.9, Absolute Lymphs (auto) 1.03, Nucleated RBC % 0 10/27/22 15:05: PT 12.6, INR 1.0, APTT 26.3 10/27/22 15:05: Sodium 135 L, Potassium 3.6, Chloride 98, Carbon Dioxide 28.0, Anion Gap 9, BUN 12, Creatinine 0.92, Estim Creat Clear Calc 42.32, Est GFR (MDRD) Af Amer 77, Est GFR (MDRD) Non-Af 64, BUN/Creatinine Ratio 13.0, Glucose 230 H, Calcium 9.5, Troponin I High Sens [address] 10/27/22 14:52 IMPRESSION: No acute intracranial findings. Electronically Signed: Hernan Robles MD at 15:59 EDT , ADDENDUM: 10/27/22 1606 IMPRESSION: No acute intracranial findings. N.B. : The above Results were Read Back by Hernan Robles MD to Chato Stark MD, and understanding confirmed on 10/27/2022 15:59:28 (ET). Electronically Signed: Hernan Robles MD at 15:59 EDT , Chest X-Ray 10/27/22 15:45 IMPRESSION: No acute cardiopulmonary disease. Electronically Signed: eHrnan Robles MD at 16:11 EDT , Assessment & Plan Assessment/Plan (1) Diabetes mellitus type I: (2) Facial tingling sensation: PLAN: Plan #Alteration facial sensation -TIA versus complex migraine -Had the lower part of her face on the left side numb for roughly 40 minutes, given her risk factors admission stroke work-up advised by SOC who evaluated while in the emergency department -CT head in the ED no acute changes, CT not performed due to iodine allergy and resolution of symptoms leading to very low concern for any LVO -We will order MRI brain /MRA head and neck -Permissive hypertension -Admit to telemetry, NIH every 4 hours -EKG demonstrated sinus tachycardia at 106 with some nonspecific T wave changes, QTc 456, no blocks -A1c, lipid panel, TSH, INR/PTT -Aspirin, has had side effects with statins in the past so this is held, AM lipid panel -Echocardiogram with bubble study ordered -PT consulted. Patient has no deficits and is swallowing and talking and moving upper extremities without difficulty so OT and speech therapy evaluation deferred unless patient develops recurrent symptoms -Hold BP medications to allow for permissive hypertension for 24 hours unless SBP greater than 220 or DBP greater than 120 or until stroke is ruled out -Lovenox for DVT prophylaxis #DMI/HIRA -Continue home insulin at 18 units glargine nightly -Sliding scale insulin with glucose checks -A.m. A1c #Hypertension -Patient does take losartan but reports blood pressure is usually fairly well controlled -Presently allowing for permissive hypertension given stroke work-up -May need additional agent prior to discharge/for discharge home #Hypothyroidism -Continue Synthroid -We will check TSH #DVT ppx: Lovenox subcutaneous Malaika Gallegos MD Time spent in the patient's overall evaluation,decision-making process, review of diagnostic data, adjustment of management, discussion with other providers, nursing nursing and ancillary staff involved in patient's care documentation, 60 minutes Charges/Coding Visit Charges Inpatient E&M: 91440 Init Hosp L2
--- NOTE | 2022-10-27 19:49 | ECHOD_ITS ---
Reason For Study: TIA/CVA Procedure This was a 2D Doppler, Color Flow transthoracic echocardiogram. The exam was of adequate technical quality. Exam performed portable in patient room. Left Ventricle Normal LV size. Left ventricular systolic function is hyperdynamic. The estimated ejection fraction is 75 %. No evidence for diastolic dysfunction. No regional wall motion abnormalities noted. Right Ventricle Normal RV size. Normal systolic function. Atria Normal left atrium. Normal right atrium. No doppler evidence for ASD. Bubble contrast study negative for right to left interatrial shunt. Mitral Valve There is no mitral annular calcification. Normal mitral valve. Trivial mitral valve insufficiency. Tricuspid Valve Normal tricuspid valve. Trivial tricuspid valve insufficiency. Unable to estimate RV systolic pressure due to insufficient tricuspid regurgitant envelope. Aortic Valve Trisinus/trileaflet aortic valve. Normal aortic valve. Pulmonic Valve The pulmonic valve is not well visualized. Great Vessels Normal sized aortic root. Pericardium/Pleural No pericardial effusion. Epicardial fat. Medication Performed a rapid injection of agitated mix of 9 cc saline and 1cc air to assess for atrial septal defect. MMode/2D Measurements & Calculations LVIDd: 4.1 cm IVSd: 1.0 cm Ao root diam: 3.6 cm LVIDs: 2.5 cm LVPWd: 1.2 cm FS: 39.5 % LAV(MOD-bp): 45.2 ml LA A4 area: 16.1 cm2 LA dimension(2D): 3.2 cm LAV(MOD-bp) Indexed: 28.9 ml/m2 LAV(MOD-sp2): 43.6 ml LAV(MOD-sp4): 43.5 ml RA A4 area: 8.3 cm2 Doppler Measurements & Calculations MV E max radames: 57.1 cm/sec Lat Peak E' Radames: 9.0 cm/sec Med Peak E' Radames: 7.9 cm/sec MV A max radames: 103.0 cm/sec E/E' lat: 6.3 E/E' med: 7.2 MV E/A: 0.55 Ao V2 max: 153.6 cm/sec LV V1 max: 140.6 cm/sec PA V2 max: 95.5 cm/sec Ao max P.5 mmHg LV V1 max P.9 mmHg Ao V2 mean: 100.8 cm/sec LV V1 mean P.4 mmHg Ao mean P.9 mmHg LV V1 mean: 97.8 cm/sec Ao V2 VTI: 26.8 cm LV V1 VTI: 26.5 cm AV (velocity ratio): 0.99 ECHO/Echo Complete Interpretation Summary Left ventricular systolic function is hyperdynamic. The estimated ejection fraction is 75 %. Trivial mitral valve insufficiency. Trivial tricuspid valve insufficiency. Epicardial fat. Unable to estimate RV systolic pressure due to insufficient tricuspid regurgita nt envelope. No evidence for diastolic dysfunction. Bubble contrast study negative for right to left interatrial shunt. Ordering Physician: Malaika Gallegos Referring Physician: Josef Jang Performed By: Beverley Pierce, STEWART, RVT
--- NOTE | 2022-10-27 19:49 | MRI_ITS ---
STUDY: MRA OF THE HEAD WITHOUT CONTRAST REASON FOR EXAM: Female, 72 years old. tia/cva r/o TECHNIQUE: 3-D [id number] (TOF) imaging was performed with MIPs. The study was performed unenhanced. COMPARISON: Head CT dated October 27, 2022. MRI of the brain dated October 28, 2022 FINDINGS: Normal bilateral petrous carotid arteries. There is ectatic elongation and tortuosity of the right cavernous carotid artery, without a demonstrated hemodynamically significant stenosis. There is atheromatous plaque formation of the left cavernous carotid artery, with a mild stenosis (less than 50%). Normal right A1 segments of the anterior cerebral artery. Normal left A1 segments of the anterior cerebral artery. Normal intact anterior communicating artery (ACOM). Normal bilateral A2 segments of the anterior cerebral arteries. Normal right M1 and M2 segments of the middle cerebral arteries, with a normal M1 bifurcation. Normal left M1 and M2 segments of the middle cerebral arteries, with a normal M1 bifurcation. Normal right posterior communicating artery (PCOM). Normal left posterior communicating artery (PCOM). Normal bilateral vertebral arteries. Proximal hypoplasia of the right vertebral artery which is a normal variant. Normal basilar artery with a normal basilar bifurcation. The visualized bilateral superior cerebellar (SCA) arteries are normal. Normal bilateral P1, P2 and visualized P3 segments of the posterior cerebral arteries. There is no demonstrated aneurysm of the [place]. There is no major vessel occlusion or hemodynamically significant stenosis. MRI/MRA Head ONLY without Contrast IMPRESSION: 1. There is no demonstrated aneurysm of the [place]. There is no major vessel occlusion or hemodynamically significant stenosis. Electronically Signed: Karri Brar MD at 11:06 EDT ,
--- NOTE | 2022-10-27 19:49 | MRI_ITS ---
STUDY: MRI BRAIN WITHOUT CONTRAST REASON FOR EXAM: Female, 72 years old. tia/cva r/o OCULAR MIGRAINE SYMPTOMS,FACIAL NUMBNESS TECHNIQUE: Standardized multiplanar fat and water weighted pulse sequences were obtained. COMPARISON: Head CT dated October 27, 2022 FINDINGS: Normal size of the ventricles and extra-axial spaces for the patient''s age. There are a limited number of small white matter hyperintensities, distributed throughout the deep white matter tracts of the cerebral hemispheres, consistent with mild chronic white matter ischemic changes. There is no evidence for recent intracranial ischemia or other cause of cytotoxic edema on diffusion weighted imaging (DWI). Normal T2* images of the brain without demonstrated susceptibility artifact. There is no demonstrated hemosiderin stain. There are no white matter hyperintensities. Specifically, there are no focal areas of white matter gliosis which are occasionally associated with vasospastic migraine headaches. Normal bilateral basal ganglia. Normal thalami. There is no extra-axial fluid accumulation. Normal flow voids within the major intracranial circulation suggesting patency by spin echo criteria. Normal sella turcica, pituitary gland, infundibular stalk, optic chiasm and hypothalamus. Normal tectal plate and pineal gland. Normal midbrain, anthony and medulla. Normal cerebellum. Normal basal cisterns. Normal bilateral temporal bones. Normal bilateral internal auditory canals. No demonstrated orbital abnormality, within the constraints of a routine brain study. Normal visualized paranasal sinuses. Normal calvarium and skull base. Normal visualized soft tissue structures. Normal visualized upper cervical spine. MRI/Brain without Contrast IMPRESSION: 1. Mild chronic ischemic changes of the brain, as described above. Electronically Signed: Karri Brar MD at 11:03 EDT ,
--- NOTE | 2022-10-27 19:49 | MRI_ITS ---
STUDY: MRA NECK WITHOUT CONTRAST REASON FOR EXAM: Female, 72 years old. tia/cva r/o TECHNIQUE: Source images were obtained, MIPs were performed. The study was performed unenhanced. COMPARISON: MRI and MRA of the brain dated October 28, 2022 FINDINGS: RIGHT CAROTID ARTERIES: Normal right common carotid artery (CCA). There is mild atherosclerotic plaque formation with minimal narrowing of the right carotid bulb. There is mild atherosclerotic plaque formation of the origin of the right internal carotid artery with less than 50% cross sectional diameter stenosis. Normal visualized cervical portion of the right internal carotid artery. There is moderate atherosclerotic plaque formation of the origin of the right external carotid artery with an estimated stenosis of 50-69% stenosis. LEFT CAROTID ARTERIES: Normal left common carotid artery (CCA). There is mild atherosclerotic plaque formation with minimal narrowing of the left carotid bulb. There is mild atherosclerotic plaque formation of the origin of the left internal carotid artery with less than 50% cross sectional diameter stenosis. Normal visualized cervical portion of the left internal carotid artery. Normal origin of the left external carotid artery (ECA). VERTEBRAL ARTERIES: Preserved antegrade flow within the bilateral vertebral artery without a hemodynamically significant stenosis. Mild atherosclerotic narrowing is seen at the vertebral subclavian artery junctions bilaterally. MRI/MRA Neck without Contrast IMPRESSION: 1. Mild atherosclerotic plaque and narrowing of the bilateral internal carotid arteries. Electronically Signed: Karri Brar MD at 11:49 EDT ,
[2022-10-27] MEDS: Insulin Glargine-YFGN 100 UNIT/ML Pen 18 UNIT SC (22:27)
[2022-10-27] MEDS: Insulin Lispro 100 UNIT/ML INSULN.PEN SC (22:27)
[2022-10-27 22:50] LABS: Bedside Glucose 306 mg/dL (74-106)
--- NOTE | 2022-10-27 22:59 | EKG12_ITS ---
Test Reason : Blood Pressure : / mmHG Vent. Rate : 083 BPM Atrial Rate : 083 BPM P-R Int : 190 ms QRS Dur : 094 ms QT Int : 394 ms P-R-T Axes : 060 -14 036 degrees QTc Int : 462 ms Normal sinus rhythm Possible Left atrial enlargement Incomplete right bundle branch block Nonspecific ST-T Changes Abnormal ECG When compared with ECG of 27-OCT-2022 14:58, No significant change was found Confirmed by KACI CUNNINGHAM, DIANN ([id number]), editor in chief MASSIMO FLORES ([id number]) on 10/31/2022 2:06:44 PM Referred By: El Confirmed By:NATASHA CLEMONS MD
[2022-10-28 00:20] VITALS: BP 142/60; PULSE 76; RESP 16; TEMP 36.7; O2SAT 96
[2022-10-28 00:59] VITALS: BMI 24.3
[2022-10-28 04:20] VITALS: BP 131/67; PULSE 82; RESP 16; TEMP 36.8; O2SAT 97
[2022-10-28 05:05] LABS: Absolute Lymphocyte Count 1.77 X10^3/uL (0.83-4.51); Absolute Neutrophil Count 4.2 X10^3/uL (2.0-7.7); Basophil# 0.05 X10^3/uL; Basophil% 0.7 % (0-1); Eosinophil# 0.11 X10^3/uL; Eosinophils% 1.6 % (0-5); Hematocrit 41.7 % (37-47); Hemoglobin 14.4 g/dL (12.0-15.0); Lymphocyte # 1.77 X10^3/ul (0.83-4.51); Lymphocyte % 25.8 % (19-41); Mean Corp Hgb Conc 34.5 g/dL (32-36); Mean Corpuscular Hgb 30.6 pg (27.0-32.0); Mean Corpuscular Volume 88.7 fL (81-99); Mean Platelet Vol. 10.4 fl (6.2-12.0); Monocyte# 0.71 X10^3/uL; Monocyte% 10.3 % (0-10); NRBC Flagged by Analyzer 0 % (0-5); Neutrophil # 4.22 X10^3/uL (2.7-7.7); Neutrophil % 61.5 % (47-70); Platelet Count 209 K/mm3 (150-450); RBC Distribution Width CV 13.2 % (11.6-14.6); RBC Distribution Width SD 42.9 fl (35.1-43.9); White Blood Count 6.9 K/mm3 (4.4-11.0)
[2022-10-28 05:48] LABS: ALB/GLOB Ratio 1.1 RATIO (0.9-2.4); AST(SGOT) 28 U/L (15-37); Alanine Aminotransfer ALT/SGPT 28 U/L (13-56); Albumin, Serum 3.4 g/dL (3.2-5.0); Alkaline Phosphatase 60 U/L (45-117); Anion Gap 7 (5-15); BUN 11 mg/dL (7-18); BUN/Creat Ratio 12.1 RATIO (10-20); Calcium,Total 8.7 mg/dL (8.5-10.1); Chloride 99 mmol/L (98-107); Cholesterol 263 mg/dL (200); Creatinine, Serum 0.91 mg/dL (0.55-1.02); EST Glomerular Filtration Rate 65 mL/min (>60); Est Glom Filt Rate - Afr Amer 78 mL/min (>60); Estimated Creatinine Clearance 42.79 ml/min; Globulin 3.1 g/dL (2.2-4.2); Glucose 327 mg/dL (74-106); High Density Lipoprotein 50 mg/dL; Potassium 3.9 mmol/L (3.5-5.1); Protein, Total 6.5 g/dL (6.4-8.2); Sodium Level 131 mmol/L (136-145); Thyroid Stim Hormone (TSH) 1.87 uIU/mL (0.358-3.74); Triglycerides 174 mg/dL; Very Low Density Lipoprotein 35 mg/dL (5-40)
[2022-10-28] MEDS: Insulin Lispro 100 UNIT/ML INSULN.PEN SC ×3 (06:38→16:40)
[2022-10-28] MEDS: Levothyroxine 75 MCG Tablet PO (06:38)
[2022-10-28 07:00] LABS: Bedside Glucose 330 mg/dL (74-106)
[2022-10-28 08:00] LABS: Bedside Glucose 354 mg/dL (74-106)
[2022-10-28 08:00] LABS: Bedside Glucose 315 mg/dL (74-106)
[2022-10-28 08:08] VITALS: BP 140/89; PULSE 85; RESP 16; TEMP 36.5; O2SAT 95
[2022-10-28] MEDS: Aspirin 81 MG TAB.CHEW PO (10:23)
[2022-10-28] MEDS: Enoxaparin 40 MG/0.4 ML Syringe SC (10:23)
[2022-10-28] MEDS: Loratadine 10 MG Tablet PO (10:23)
[2022-10-28] MEDS: Acetaminophen 500 MG Tablet 1000 MG PO (10:47)
[2022-10-28 11:51] LABS: Bedside Glucose 496 mg/dL (74-106)
[2022-10-28] MEDS: Insulin Lispro 100 UNIT/ML INSULN.PEN 8 UNIT SC (12:23)
[2022-10-28 13:42] VITALS: BP 154/85; PULSE 105; RESP 16; TEMP 36.7; O2SAT 97
--- NOTE | 2022-10-28 15:34 | CHAPLAIN ---
Type of Pastoral Visit ___ Initial Visit ___ Follow-up Visit ___ On-call Visit ___ General Patient Visit ___ Spiritual Assessment ___ Family Conference ___ Bereavement ___ Rapid Response ___ Code Blue ___ Other (describe below) Pastoral Care Referral From ___ Patient ___ Family ___ Nurse ___ Physician ___ [place] ___ Ethics Manager ___ Other (describe below) Sacrament/Intervention ___ Active listening ___ Anointing ___ Buddhist ___ Bereavement ___ Communion ___ Rachel exploration ___ ___ Life review ___ Prayer ___ Reconciliation ___ Sacrament of Sick ___ Supportive presence ___ Wedding ___ Other (describe below) Pastoral Comments patient was having telehealth neurology consult when the visit was attempted
--- NOTE | 2022-10-28 16:05 | CASEMGMT ---
DORENE VALLECILLO in to complete HUSAIN Form with patient. DORENE VALLECILLO explained HUSAIN form to patient, patient voiced understanding. Patient to sign HUSAIN form and file in chart. Patient provided copy of signed HUSAIN form. Patient had no further questions or concerns at this time.
--- NOTE | 2022-10-28 16:43 | DS.PCM_ITS ---
Providers Date of Admission: 10/27/22 Date of Discharge: 10/28/22 Primary Care Physician: Dr. Rod Jang MD Reason For Visit: R/O CVA Diagnosis Discharge Diagnosis (1) Diabetes mellitus type I: Status: Chronic Code(s): E10.9 - Type 1 diabetes mellitus without complications (2) Facial tingling sensation: Status: Acute Code(s): R20.2 - Paresthesia of skin Medications at Discharge Home Medications cholecalciferol (vitamin D3) 50 mcg (2,000 unit) capsule 2,000 unit PO DAILY 10/04/17 insulin lispro 100 unit/mL subcutaneous cartridge 0 unit SQ TID 10/04/17 levothyroxine 75 mcg tablet 75 mcg PO DAILY 10/04/17 qyslctubhrbo-Vi-vxoe-minerals 1 ea PO DAILY 10/04/17 eantn4-qhl-umh-other zcefr7y-sdmm oil 360 mg-1,200 mg capsule 2 tab PO BID 10/04/17 Lactobacills gasseri-Bifidobac bifidum,longum 1.5 billion cell capsule ([facility]) cap PO .q day 12/07/17 acetaminophen 650 mg tablet,extended release (Tylenol Arthritis Pain) 650 mg PO Q8H PRN arthritis 12/07/17 conjugated estrogens 0.625 mg/gram vaginal cream (Premarin) See Rx Instructions vaginal .COMPLEX 12/07/17 latanoprost 0.005 % eye drops 1 drp ophthalmic (eye) QPM 12/07/17 loratadine 10 mg tablet (Claritin) 10 mg PO QDAY 12/07/17 insulin glargine 100 unit/mL subcutaneous solution 18 unit subcut QHS 12/09/17 calcium citrate 315 mg calcium-vitamin D3 6.25 mcg (250 unit) tablet 1 tab PO DAILY 12/14/18 dicyclomine 10 mg capsule 10 mg PO .COMPLEX PRN Cramps 12/14/18 naproxen 250 mg tablet 250 mg PO .COMPLEX PRN Pain 12/14/18 aspirin 81 mg chewable tablet 81 mg PO BREAKFAST #0 tabs 10/28/22 ramipril 1.25 mg capsule 1.25 mg PO BID #60 caps 10/28/22 Hospital Course Procedures 2-D Echocardiogram, EKG and - (MRI brain/CT brain/chest x-ray/MRA head and neck) Summary of Care Provided Minutes Spent on Discharge: 36 Hospital Course: Mrs. Church is a 72-year-old white female who presented to the emergency department at [facility] on 10/27/2022 with left-sided facial numbness. She has a history of type 1 diabetes, hypertension, and hyperlipidemia with intolerance to statins. She developed some abnormal facial sensation in the lower half of her left face that happened earlier on the morning of admission with some associated visual changes her symptoms resolved by the time she presented to the emergency department. Symptoms evidently started at 10 AM and were associated with some flashing in her visual field on that side and she felt that when she looked in the mirror she had some asymmetric facial movements. She had no difficulty swallowing or talking. She also had somewhat of an associated headache. She was evaluated by [facility] neurology in the emergency department and they recommended further work-up to rule out TIA/stroke. She was admitted to the telemetry floor after she had a normal CT of the head. MRI of the brain was unremarkable for acute infarct but did show mild chronic ischemic changes of the brain. MRA was negative for any occlusions or hemodynamically significant stenosis. Echocardiogram showed an EF of 75% with trivial mitral valve and tricuspid valve insufficiency and a negative bubble study. Cholesterol was 263/LDL 178/HDL 50. Patient is intolerant to statins and has tried several of them so we were unable to treat this any further. Her TSH was normal at 1.87. Her hemoglobin A1c was found to be elevated at 8.0. She does follow-up with endocrinology as an outpatient. I encouraged her to follow-up as her blood sugars have been elevated while she is here. She states that been better controlled at home however hemoglobin A1c is above goal. Her symptoms remain resolved throughout her entire hospital course. After her negative imaging findings we phone consulted with neurology and they recommended we discharge her with aspirin and have her follow-up with neurology as an outpatient. Differential diagnosis is still complex migraine versus TIA. Her blood pressures were noted to be elevated. She is on ramipril as an outpatient but on low-dose at 1.25 mg p.o. daily. She states her endocrino logist did ask her to double the dose to 2.5 mg daily and she did try once however she felt funny and stopped doing that. I recommended she split the dose into twice daily dosing to see if she tolerates that better to see if we could also obtain improved blood pressure control. She voiced understanding and stated she would try that. She is to follow-up with her primary care physician within the next week. We recommended outpatient follow-up with neurology within the next month and she indicated she would call for an appointment after discharge. She is to follow-up with her client application support engineer as scheduled. She was discharged home in stable condition on 10/28/2022 with all symptoms resolved. Discharge diagnoses: Left facial paresthesias Left eye scotomas DM-1/HIRA-uncontrolled--> A1c is 8.0 Hyperlipidemia Hypertension Hypothyroidism Vitamin D since he Physical Exam Const alert, oriented x3, no apparent distress, average body habitus, healthy appearing and well nourished Constitutional Narrative: Very pleasant, older white female, sitting up in bed, family at bedside, patient appears comfortable and nontoxic General Appearance: cooperative, comfortable, well kempt and well developed Orientation / Consciousness: awake, oriented to person, oriented to place and oriented to time Exam Limitations: no limitations HEENT normocephalic, head/scalp atraumatic, hearing grossly normal bilaterally and moist oral mucous membranes HEENT Narrative: Mallampati 2-3, no thrush Eyes PERRL, EOMs intact bilaterally and conjunctivae normal Eyes Narrative: No scleral icterus Neck no lymphadenopathy and supple Neck Narrative: Trachea midline, no thyroid enlargement Resp normal respiratory effort, no retractions, no use of accessory muscles and clear to auscultation bilaterally Auscultation: Negative for rales, rhonchi or wheezes Cardio regular rate, regular rhythm, S1 normal heart sound, S2 normal heart sound, no murmurs, no rub, no gallops and no clicks GI normal to inspection, nondistended, normoactive bowel sounds, soft to palpation and non-tender Extremity no clubbing, cyanosis or edema Extremity Narrative: 2+ pedal pulses Skin no rashes or lesions noted, no wounds, skin turgor normal and no jaundice Neuro oriented x3, CN's II-XII intact bilaterally, moves all extremities and no focal motor deficits Speech: speech normal Psych affect normal Psych Narrative: Very pleasant, appropriately interactive Weight / BMI Weight Weight: 58.5 kg Body Mass Index (BMI) 24.3 ABG / Lab / Microbiology Data Result Diagrams: 10/28/22 04:54 10/28/22 04:54 Laboratory: Laboratory Results - last 24 hr 10/27/22 22:20: POC Glucose 306 H 10/28/22 01:06: POC Glucose 354 H 10/28/22 01:09: POC Glucose 315 H 10/28/22 04:54: WBC 6.9, RBC 4.70, Hgb 14.4, Hct 41.7, MCV 88.7, MCH 30.6, MCHC 34.5, RDW Std Deviation 42.9, RDW Coeff of Nely 13.2, Plt Count 209, MPV 10.4, Immature Gran % (Auto) 0.100, Neut % (Auto) 61.5, Lymph % (Auto) 25.8, Lyman % (Auto) 10.3 H, Eos % (Auto) 1.6, Baso % (Auto) 0.7, Absolute Neuts (auto) 4.2, Absolute Lymphs (auto) 1.77, Nucleated RBC % 0 10/28/22 04:54: Sodium 131 L, Potassium 3.9, Chloride 99, Carbon Dioxide 25.0, Anion Gap 7, BUN 11, Creatinine 0.91, Estim Creat Clear Calc 42.79, Est GFR (MDRD) Af Amer 78, Est GFR (MDRD) Non-Af 65, BUN/Creatinine Ratio 12.1, Glucose 327 H, Calcium 8.7, Total Bilirubin 0.70, AST 28, ALT 28, Alkaline Phosphatase 60, Total Protein 6.5, Albumin 3.4, Globulin 3.1, Albumin/Globulin Ratio 1.1, Triglycerides 174, Cholesterol 263 H, LDL Cholesterol 178 H, VLDL Cholesterol 35, HDL Cholesterol 50, TSH 1.87 10/28/22 04:54: Hemoglobin A1c 8.0 H 10/28/22 06:37: POC Glucose 330 H 10/28/22 11:30: POC Glucose 496 H* Radiography Diagnostic Testing: Radiology Impression Brain MRI 10/27/22 19:49 IMPRESSION: 1. Mild chronic ischemic changes of the brain, as described above. Electronically Signed: Karri Brar MD at 11:03 EDT , Echocardiogram 10/27/22 19:49 Interpretation Summary Left ventricular systolic function is hyperdynamic. The estimated ejection fraction is 75 %. Trivial mitral valve insufficiency. Trivial tricuspid valve insufficiency. Epicardial fat. Unable to estimate RV systolic pressure due to insufficient tricuspid regurgi tant envelope. No evidence for diastolic dysfunction. Bubble contrast study negative for right to left interatrial shunt. Ordering Physician: Malaika Gallegos Referring Physician: Josef Jang Performed By: Beverley Pierce, PHILIP, RVT Head MRA 10/27/22 19:49 IMPRESSION: 1. There is no demonstrated aneurysm of the [place]. There is no major vessel occlusion or hemodynamically significant stenosis. Electronically Signed: Karri Brar MD at 11:06 EDT , Neck MRA 10/27/22 19:49 IMPRESSION: 1. Mild atherosclerotic plaque and narrowing of the bilateral internal carotid arteries. Electronically Signed: Karri Brar MD at 11:49 EDT , D/C Instructions Discharge Diet: Low fat / Low cholesterol and 1800 Calorie Control Diet Discharge Activity: Return to Normal Activity Return to work on: 10/29/22 Meaningful Use Info Meaningful Use Diagnoses (Choose all that apply): None applicable Discharge Plan Admission Admit Date/Time: 10/27/22 19:34 Primary Reason for Your Visit: TIA versus complex migraine Attending Provider: Kylie Atkins Primary Care Provider: Rod Jang Consulting Providers: Malaika Gallegos Instructions Additional Instructions / Restrictions: 1. Recommendation for neurology was to initiate aspirin 81 mg daily and to follow-up with neurology as an outpatient 2. Please call neurology for follow-up either at the neurologist noted below or neurologist of your discretion -Recommend stroke neurology if possible 3. Please increase your ramipril dosing to twice daily once in the morning and once in the evening as discussed prior to discharge 4. Please follow-up with your client application support engineer as previously scheduled Discharge Orders/Prescriptions Prescriptions: New aspirin 81 mg Tablet,Chewable 81 mg PO BREAKFAST Qty: 0 0RF Continued conjugated estrogens [Premarin] 0.625 mg/gram cream See Rx Instructions VAGINAL .COMPLEX Label Comments: VAGINAL as directed Rx Instructions: VAGINAL as directed 2x week loratadine [Claritin] 10 mg tablet 10 mg PO QDAY latanoprost 0.005 % drops 1 drp OPHTHALMIC QPM acetaminophen [Tylenol Arthritis Pain] 650 mg tablet extended release 650 mg PO Q8H PRN (Reason: arthritis) L. gasseri-B. bifidum-B longum [[facility]] 1.5 billion cell capsule PO .q day dicyclomine 10 mg capsule 10 mg PO .COMPLEX PRN (Reason: Cramps) Label Comments: 10 mg PO ac and hs PRN Rx Instructions: 10 mg PO ac and hs PRN naproxen 250 mg tablet 250 mg PO .COMPLEX PRN (Reason: Pain) Label Comments: 250 mg PO bid with meals PRN Rx Instructions: 250 mg PO bid with meals PRN calcium citrate-vitamin D3 315-250 mg-unit tablet 1 tab PO DAILY levothyroxine 75 MCG tablet 75 mcg PO DAILY owakzwkeqdfo-Sk-zpoz-minerals 1 EACH tablet 1 ea PO DAILY insulin lispro 100 UNIT/ML cartridge 0 unit SQ TID Label Comments: per sliding scale. pt states no more than 20units total daily; approx. 5units per time. Rx Instructions: 8 UNITS WITH BREAKFAST AND LUNCH, 11 UNITS AT SUPPER cholecalciferol (vitamin D3) 2,000 UNIT capsule 2,000 unit PO DAILY npngv-0x-gkc-epa-fish oil 1 EACH capsule 2 tab PO BID insulin glargine 100 unit/mL solution 18 unit SC QHS Label Comments: 15 unit SC as directed Rx Instructions: HS Changed ramipril 1.25 mg capsule 1.25 mg PO BID Qty: 60 0RF Referrals / Follow Up: Rod Jang MD [Primary Care Provider] - Within 2 Weeks Ray Bueno MD [Non-Staff -Ordering Privileges] - Within 1 Month (tia vs complex migraine f/u) Disposition Disposition (needs filled in before D/C Order can be placed): Home, Self Care Charges/Coding Visit Charges Inpatient E&M: 38874 Disch Hosp >30min
[2022-10-28 16:55] LABS: Bedside Glucose 464 mg/dL (74-106)
== END 2022-10-28 16:48 | disposition home or self-care (01) ==
LOC: ED 18:38 → PCU 20:07
PROVIDERS: Admitting Provider Internal Medicine; Emergency Provider Emergency Medicine; PCP Family Medicine; Visit Provider Internal Medicine
DX: R20.2 Paresthesia of skin (principal); E10.65 Type 1 diabetes mellitus with hyperglycemia; Z79.4 Long term (current) use of insulin; H53.9 Unspecified visual disturbance; E78.5 Hyperlipidemia, unspecified; I10 Essential (primary) hypertension; E03.9 Hypothyroidism, unspecified; Z79.899 Other long term (current) drug therapy; Z79.890 Hormone replacement therapy; R55 Syncope and collapse; E86.0 Dehydration
CPT/HCPCS: 36415; 70450; 70544; 70547; 70551; 71045; 80048; 80053; 80061; 82962; 83036; 83605; 83735; 84443; 84484; 85025; 85610; 85730; 93005; 93306; 94668; 94762; 96372; 99221; 99285; A4216; G0378

== ENCOUNTER 2022-10-28 22:27 | Emergency (ER) | payer MEDICARE, OTHER, SELFPAY ==
[2022-10-28 22:28] VITALS: BP 154/81; PULSE 66; RESP 10; TEMP 35.9; O2SAT 97; BMI 25.0
--- NOTE | 2022-10-28 22:50 | CT_ITS ---
EXAM: CT HEAD WITHOUT INTRAVENOUS CONTRAST CLINICAL INDICATION: syncope TECHNIQUE: Multiple axial images were obtained of the head without intravenous contrast. This CT exam was performed using one or more of the following dose reduction techniques: automated exposure control, adjustment of the mA and/or kV according to patient size, and/or use of iterative reconstruction technique. This report was created using [employer] report generation technology. COMPARISON: 10/27/2022 FINDINGS: BRAIN AND EXTRA-AXIAL SPACES: Unremarkable. No intra- or extra-axial hemorrhage. No evidence of acute infarct. No intracranial mass or mass effect. There is preservation of the adams/white matter interface. Posterior fossa structures are unremarkable. Ventricles are appropriate for age. No hydrocephalus. Basal cisterns are patent. BONES/JOINTS: Unremarkable. No discrete lytic or blastic abnormalities. SINUSES: Unremarkable as visualized. Clear. MASTOID AIR CELLS: Unremarkable. Clear. ORBITS: Visualized globes, extraocular muscles, optic nerves and retrobulbar fat appear unremarkable. CT/Brain/Head without Contrast IMPRESSION: Negative head/brain CT without intravenous contrast. There has been no change from the reference exam. Electronically Signed: Jame Mcconnell MD at 23:45 EDT ,
--- NOTE | 2022-10-28 22:52 | EKG12_ITS ---
Test Reason : SYNCOPE Blood Pressure : / mmHG Vent. Rate : 083 BPM Atrial Rate : 083 BPM P-R Int : 188 ms QRS Dur : 094 ms QT Int : 396 ms P-R-T Axes : 052 -05 023 degrees QTc Int : 465 ms Normal sinus rhythm Incomplete right bundle branch block Nonspecific T wave abnormality Abnormal ECG Confirmed by KACI CUNNINGHAM, DIANN ([id number]), web content editor MASSIMO FLORES ([id number]) on 10/31/2022 6:53:02 AM Referred By: Confirmed By:NATASHA CLEMONS MD
--- NOTE | 2022-10-28 23:18 | EX.ED.DYSGE1 ---
HPI History of Present Illness Chief Complaint: Seizure Narrative Narrative: Patient is a 72-year-old female with past medical history of diabetes who was just discharged from the hospital around 4 PM today after being admitted for change in vision and possible TIA. She had a CT MRI and MRA obtained which revealed no acute finding. She was discharged home. She states that this evening she took a shower and did just not feel well. She states that she began to walk down the [place] to check her blood pressure when she began to feel her heart was racing and then she awoke on the ground. Family states there was slight twitching of her left arm. They states she was unconscious for 2 to 3 minutes. They state when she awoke she took a minute or 2 to respond but when she did she was awake and alert. Patient denies any known history of seizure disorder. Patient and family state as there was concern this was seizure versus syncope she was sent in for evaluation [facility] Medical History (Updated 10/29/22 @ 01:[address] Giovany Raygoza, DO) Diabetes mellitus type I Glaucoma Hyperlipidemia Hypertension Hypothyroidism Osteoarthritis Premature ventricular contractions Home Medications cholecalciferol (vitamin D3) 50 mcg (2,000 unit) capsule 2,000 unit PO DAILY 10/04/17 [History Last Taken Unknown] insulin lispro 100 unit/mL subcutaneous cartridge 0 unit SQ TID 10/04/17 [History Last Taken Unknown] levothyroxine 75 mcg tablet 75 mcg PO DAILY 10/04/17 [History Last Taken Unknown] swhkdzedacxq-Gc-nxpc-minerals 1 ea PO DAILY 10/04/17 [History Last Taken Unknown] udylx0-vdc-dvw-other nmbki7n-pswz oil 360 mg-1,200 mg capsule 2 tab PO BID 10/04/17 [History Last Taken Unknown] Lactobacills gasseri-Bifidobac bifidum,longum 1.5 billion cell capsule (eDossea) 1 cap PO .q day 12/07/17 [History Last Taken Unknown] acetaminophen 650 mg tablet,extended release (Tylenol Arthritis Pain) 650 mg PO Q8H PRN arthritis 12/07/17 [History Last Taken Unknown] conjugated estrogens 0.625 mg/gram vaginal cream (Premarin) See Rx Instructions vaginal .COMPLEX 12/07/17 [History Last Taken Unknown] latanoprost 0.005 % eye drops 1 drp ophthalmic (eye) QPM 12/07/17 [History Last Taken Unknown] loratadine 10 mg tablet (Claritin) 10 mg PO QDAY 12/07/17 [History Last Taken Unknown] insulin glargine 100 unit/mL subcutaneous solution 18 unit subcut QHS 12/09/17 [History Last Taken Unknown] calcium citrate 315 mg calcium-vitamin D3 6.25 mcg (250 unit) tablet 1 tab PO DAILY 12/14/18 [History Last Taken Unknown] dicyclomine 10 mg capsule 10 mg PO .COMPLEX PRN Cramps 12/14/18 [History Last Taken Unknown] naproxen 250 mg tablet 250 mg PO .COMPLEX PRN Pain 12/14/18 [History Last Taken Unknown] aspirin 81 mg chewable tablet 81 mg PO BREAKFAST #0 tabs 10/28/22 [Rx Last Taken Unknown] ramipril 1.25 mg capsule 1.25 mg PO BID #60 caps 10/28/22 [Rx Last Taken Unknown] Allergy/AdvReac Type Severity Reaction Status Date / Time ezetimibe [From Zetia] AdvReac Severe Abd Verified 10/28/22 22:34 cramps/diarrhea atorvastatin [From Lipitor] AdvReac Intermediate myalgias Verified 10/28/22 22:34 enalapril AdvReac Intermediate hypotension Verified 10/28/22 22:34 levofloxacin [From Levaquin] AdvReac Intermediate numbness Verified 10/28/22 22:34 and tingling lovastatin AdvReac Intermediate muscle Verified 10/28/22 22:34 spasms niacin AdvReac Intermediate Flushing, Verified 10/28/22 22:34 can't sleep, leg cramps prednisone AdvReac Intermediate Anxious, Verified 10/28/22 22:34 itchy, puffy after first dose 40 mg rosuvastatin [From Crestor] AdvReac Intermediate GI upset, Verified 10/28/22 22:34 abdominal cramping simvastatin AdvReac Intermediate Myalgias Verified 10/28/22 22:34 acetaminophen AdvReac Unknown Nausea/Vom/ Verified 10/28/22 22:34 [From Tylenol-Codeine] Diarrhea cephalexin AdvReac Unknown unknown Verified 10/28/22 22:34 codeine AdvReac Unknown Nausea/Vom/ Verified 10/28/22 22:34 [From Tylenol-Codeine] Diarrhea iodine AdvReac Unknown unknown Verified 10/28/22 22:34 nalbuphine [From Nubain] AdvReac Unknown unknown Verified 10/28/22 22:34 Family History Mother Hypertension Diabetes Kidney disease CAD (coronary artery disease) Myocardial infarction Father Hypertension COPD (chronic obstructive pulmonary disease) Cancer Brain aneurysm Congestive heart failure Sister Diabetes Daughter Raynaud disease Meniere disease Daughter Thyroid cancer Sister Diabetes Surgical History History of appendectomy History of section History of cholecystectomy History of colonoscopy History of D&C History of laparoscopy History of tubal ligation Social History (Updated 12/14/18 @ 16:59 by Corrie NIETO, PA) Smoking Status: Never smoker alcohol intake: never substance use type: does not use caffeine: No ROS ROS ED Constitutional Constitutional ED: Denies chills or fever(s) ENT ENT ED: Denies sore throat Cardiovascular Cardiovascular: Reports racing heartbeat; Denies chest pain Respiratory/Chest Respiratory/Chest: Denies cough or dyspnea Gastrointestinal Gastrointestinal: Denies abdominal pain, diarrhea, nausea or vomiting Genitourinary Genitourinary ED: Denies dysuria Musculoskeletal Musculoskeletal: Denies myalgias Integumentary Denies rash Neurologic Neurologic: Reports other Details: Questionable seizure ; Denies headache(s) or weakness Hematologic/Lymphatic Hematologic/Lymphatic: Denies easy bleeding or easy bruising EXAM Physical Exam Const Vital Signs: 10/28/22 22:28 10/29/22 01:40 Temperature 96.6 F L Temperature Source Temporal Pulse Rate 66 Pulse Rate [Lying] 90 Pulse Rate [Sitting (for 1 minute prior to obtaining)] 95 Pulse Rate [Standing (for 1 minute prior to obtaining)] 99 Respiratory Rate 10 L Blood Pressure 154/81 H Blood Pressure [Lying] 154/77 H Blood Pressure [Sitting (for 1 minute prior to obtaining)] 135/71 H Blood Pressure [Standing (for 1 minute prior to obtaining)] 146/86 H Blood Pressure Mean 105 Blood Pressure Mean [Lying] 102 Blood Pressure Mean [Sitting (for 1 minute prior to obtaining)] 92 Blood Pressure Mean [Standing (for 1 minute prior to obtaining)] 106 Pulse Ox 97 Oxygen Delivery Method Room Air Positive well nourished and well developed General Appearance ED: well developed HEENT Reports dry mucous membranes HEENT Narrative: Normocephalic atraumatic No tongue or cheek biting noted Mouth ED: Yes dry mucous membranes Mouth: dry mucous membranes Eyes PERRL and EOMs intact bilaterally Neck supple Neck Narrative: No bony deformity or step-off of the cervical spine no midline pain on palpation Resp normal respiratory effort and clear to auscultation bilaterally Cardio regular rate and regular rhythm Rate: other Other Details: Radial pulses are plus 2 out of 4 bilaterally are equal and symmetric GI normal to inspection, nondistended, normoactive bowel sounds, non-tender, non-distended and no masses GI Narrative: No voluntary guarding or rigidity no pulsatile mass Auscultation: normoactive bowel sounds Palpation: soft Extremity normal to inspection Extremity Narrative: No bony deformity or joint effusion noted Neuro oriented x3 and CN's II-XII intact bilaterally Neuro Narrative: Cranial nerves II through XII are grossly intact there are no focal neurologic deficits. No pronator drift no dysmetria no truncal ataxia. NIH stroke scale score of 0 Sensorium / Orientation: alert Psych mental status grossly normal Skin no rashes or lesions noted Skin Narrative: Skin turgor is increased MDM MDM MDM Narrative Medical decision making narrative: Patient presented to the ER with stable vitals and a normal neurologic exam. She had just underwent a CT MRI and MRA in the last 24 hours which were normal. She is not on a blood thinner but as she had a syncopal versus seizure event I did want to make sure there was no sudden onset spontaneous intracranial hemorrhage so a repeat CT scan was obtained. This revealed no acute findings. The fact patient did not have tongue or cheek biting did not have a postictal phase and had a prodrome of symptoms prior to the event indicates this is most likely not a seizure. Also as her lactic acid is normal this goes against seizure activity as well. Work-up showed mild dehydration with creatinine increasing from 0.9 earlier today to 1.21. Orthostatic vital signs were technically negative and patient was able to ambulate with a steady gait. Her troponin from October 28 was 6 is been over 24 hours and the repeat today is not significantly elevated at a value of 13 also patient does not have any chest discomfort. We discussed IV hydration because of her increased kidney function and apparent orthostatic syncope. Patient states that as she was able to walk to the bathroom without difficulty she would prefer to hydrate orally at home. Therefore as work-up at this time is not showing acute stroke or seizure or intracranial hemorrhage it is not indicating an acute cardiac event or any type of dysrhythmia or acute anemia and patient can ambulate without difficulty she will be discharged home and can follow-up on an outpatient basis History & Record Review Discussion w/independent historian: Patient and Family Lab Data Attestation: I reviewed the patient's lab results. Labs: Laboratory Results - last 24 hr 10/28/22 10/29/22 10/29/22 23:22 00:45 00:45 WBC 12.1 H RBC 4.80 Hgb 14.7 Hct 42.5 MCV 88.5 MCH 30.6 MCHC 34.6 RDW Std Deviation 42.6 RDW Coeff of Nely 13.1 Plt Count 218 MPV 10.2 Immature Gran % (Auto) 0.200 Neut % (Auto) 80.1 H Lymph % (Auto) 10.8 L Mayes % (Auto) 7.9 Eos % (Auto) 0.5 Baso % (Auto) 0.5 Absolute Neuts (auto) 9.7 H Absolute Lymphs (auto) 1.31 Nucleated RBC % 0 Sodium 132 L Potassium 4.3 Chloride 97 L Carbon Dioxide 25.0 Anion Gap 10 BUN 23 H Creatinine 1.21 H Estim Creat Clear Calc 32.18 Est GFR (MDRD) Af Amer 56 L Est GFR (MDRD) Non-Af 47 L BUN/Creatinine Ratio 19.0 Glucose 357 H Lactic Acid 1.5 Calcium 9.2 Magnesium 2.3 Troponin I High Sens 13 Radiography Diagnostic Testing: Clinical Impression(s) from Imaging Studies Brain CT 10/28/22 22:50 IMPRESSION: Negative head/brain CT without intravenous contrast. There has been no change from the reference exam. Electronically Signed: Jame Mcconnell MD at 23:45 EDT , Discharge Plan Triage Chief Complaint: Seizure ED Provider: Giovany Raygoza Dx/Rx/DC Orders Clinical Impression: Diabetes mellitus type I, Mild dehydration, Syncope Instructions: Causes of Syncope, Dehydration Prescriptions: No Action conjugated estrogens [Premarin] 0.625 mg/gram cream See Rx Instructions VAGINAL .COMPLEX Label Comments: VAGINAL as directed Rx Instructions: VAGINAL as directed 2x week loratadine [Claritin] 10 mg tablet 10 mg PO QDAY latanoprost 0.005 % drops 1 drp OPHTHALMIC QPM acetaminophen [Tylenol Arthritis Pain] 650 mg tablet extended release 650 mg PO Q8H PRN (Reason: arthritis) L. gasseri-B. bifidum-B longum [eDossea] 1.5 billion cell capsule 1 cap PO .q day dicyclomine 10 mg capsule 10 mg PO .COMPLEX PRN (Reason: Cramps) Label Comments: 10 mg PO ac and hs PRN Rx Instructions: 10 mg PO ac and hs PRN naproxen 250 mg tablet 250 mg PO .COMPLEX PRN (Reason: Pain) Label Comments: 250 mg PO bid with meals PRN Rx Instructions: 250 mg PO bid with meals PRN calcium citrate-vitamin D3 315-250 mg-unit tablet 1 tab PO DAILY levothyroxine 75 MCG tablet 75 mcg PO DAILY ryzyrssnxqni-Tq-kjqu-minerals 1 EACH tablet 1 ea PO DAILY insulin lispro 100 UNIT/ML cartridge 0 unit SQ TID Label Comments: per sliding scale. pt states no more than 20units total daily; approx. 5units per time. Rx Instructions: 8 UNITS WITH BREAKFAST AND LUNCH, 11 UNITS AT SUPPER cholecalciferol (vitamin D3) 2,000 UNIT capsule 2,000 unit PO DAILY rntrr-9p-ooe-epa-fish oil 1 EACH capsule 2 tab PO BID insulin glargine 100 unit/mL solution 18 unit SC QHS Label Comments: 15 unit SC as directed Rx Instructions: HS aspirin 81 mg Tablet,Chewable 81 mg PO BREAKFAST Qty: 0 0RF ramipril 1.25 mg capsule 1.25 mg PO BID Qty: 60 0RF Primary Care Provider: Rod Jang Referrals: oRd Jang MD [Primary Care Provider] - Activity Restrictions/Additional Instructions: Your work-up today indicates your episode this evening was more of a passing out/syncopal event and not seizure. You also have changes consistent with mild dehydration. Please keep yourself well-hydrated and control your blood sugars and return to the ER should you have any further concerns Disposition Disposition: Home, Self Care
[2022-10-28 23:52] LABS: Lactic Acid 1.5 mmol/L (0.4-1.9)
[2022-10-29 00:52] LABS: Absolute Lymphocyte Count 1.31 X10^3/uL (0.83-4.51); Absolute Neutrophil Count 9.7 X10^3/uL (2.0-7.7); Basophil# 0.06 X10^3/uL; Basophil% 0.5 % (0-1); Eosinophil# 0.06 X10^3/uL; Eosinophils% 0.5 % (0-5); Hematocrit 42.5 % (37-47); Hemoglobin 14.7 g/dL (12.0-15.0); Lymphocyte # 1.31 X10^3/ul (0.83-4.51); Lymphocyte % 10.8 % (19-41); Mean Corp Hgb Conc 34.6 g/dL (32-36); Mean Corpuscular Hgb 30.6 pg (27.0-32.0); Mean Corpuscular Volume 88.5 fL (81-99); Mean Platelet Vol. 10.2 fl (6.2-12.0); Monocyte# 0.96 X10^3/uL; Monocyte% 7.9 % (0-10); NRBC Flagged by Analyzer 0 % (0-5); Neutrophil # 9.67 X10^3/uL (2.7-7.7); Neutrophil % 80.1 % (47-70); Platelet Count 218 K/mm3 (150-450); RBC Distribution Width CV 13.1 % (11.6-14.6); RBC Distribution Width SD 42.6 fl (35.1-43.9); White Blood Count 12.1 K/mm3 (4.4-11.0)
[2022-10-29 01:23] LABS: Anion Gap 10 (5-15); BUN 23 mg/dL (7-18); Calcium,Total 9.2 mg/dL (8.5-10.1); Chloride 97 mmol/L (98-107); Creatinine, Serum 1.21 mg/dL (0.55-1.02); EST Glomerular Filtration Rate 47 mL/min (>60); Est Glom Filt Rate - Afr Amer 56 mL/min (>60); Estimated Creatinine Clearance 32.18 ml/min; Glucose 357 mg/dL (74-106); Magnesium 2.3 mg/dL (1.6-2.6); Potassium 4.3 mmol/L (3.5-5.1); Sodium Level 132 mmol/L (136-145); Troponin-I HS 13 pg/mL (3.0-54.0)
[2022-10-29 01:40] VITALS: BP 135/71; BP 146/86; BP 154/77; PULSE 90; PULSE 95; PULSE 99
[2022-10-29 02:03] VITALS: PULSE 88; RESP 16; O2SAT 98
== END 2022-10-29 02:03 | disposition home or self-care (01) ==
PROVIDERS: Emergency Provider Emergency Medicine; PCP Family Medicine; Visit Provider Emergency Medicine
DX: R55 Syncope and collapse (principal); E10.9 Type 1 diabetes mellitus without complications; E86.0 Dehydration; E78.5 Hyperlipidemia, unspecified; I10 Essential (primary) hypertension; Z79.82 Long term (current) use of aspirin
CPT/HCPCS: 70450; 80048; 83605; 83735; 84484; 85025; 93005

== ENCOUNTER → 2023-06-11 | Outpatient (CLI) | payer MEDICARE, OTHER, SELFPAY ==
--- NOTE | 2023-06-11 09:37 | BI_ITS ---
MAMMOGRAPHY - BILATERAL SCREENING REASON FOR EXAM: Female, 72 years old. Routine annual screening examination. PERTINENT HISTORY: Sister with breast cancer. TECHNIQUE: Digital bilateral breast teri (3D mammographic acquisition) in the CC and MLO projections. 2-D mediolateral oblique (MLO) and craniocaudad (CC) views of both breasts were obtained. CAD: Full Field Digital Mammography with Computer Added Detection was performed. COMPARISON: Comparison is made with prior study dated June 10, 2022 and June 05, 2021. FINDINGS: Breast Composition: The breasts are heterogeneously dense, which may obscure small masses. There are no dominant masses or suspicious calcifications. No other significant abnormalities are identified. There has been no significant change since the prior study. BI/SCRN MAMM (CAD)W/TERI BILAT IMPRESSION: Stable bilateral screening mammogram. Yearly follow-up mammogram recommended. (A) ASSESSMENT CATEGORY: BIRADS Category 1: Negative. A letter regarding these results will be sent to the patient by the facility within 30 days. Approximately 10% of breast cancers are not detected by mammography. A normal mammogram should not delay biopsy of a clinically suspicious abnormality. [id number] Electronically Signed: Donald Meredith MD at 10:34 EDT ,
== END | disposition home or self-care (01) ==
LOC: OPBI 09:35
PROVIDERS: PCP Family Medicine; Referring Provider Obstetrics & Gynecology; Visit Provider Obstetrics & Gynecology
DX: Z12.31 Encounter for screening mammogram for malignant neoplasm of breast (principal); Z80.3 Family history of malignant neoplasm of breast
CPT/HCPCS: 77063; 77067

== ENCOUNTER → 2024-06-13 | Outpatient (CLI) | payer MEDICARE, OTHER, SELFPAY ==
--- NOTE | 2024-06-13 09:25 | BI_ITS ---
MAMMOGRAPHY - BILATERAL SCREENING REASON FOR EXAM: Female, 73 years old. Routine annual screening examination. PERTINENT HISTORY: Sister with breast cancer. TECHNIQUE: Digital bilateral breast teri (3D mammographic acquisition) in the CC and MLO projections. 2-D mediolateral oblique (MLO) and craniocaudad (CC) views of both breasts were obtained. CAD: Full Field Digital Mammography with Computer Added Detection was performed. COMPARISON: Comparison is made with prior study dated June 11, 2023 and June 10, 2022. FINDINGS: Breast Composition: The breasts are heterogeneously dense, which may obscure small masses. There are no dominant masses or suspicious calcifications. No other significant abnormalities are identified. There has been no significant change since the prior study. BI/SCRN MAMM (CAD)W/TERI BILAT IMPRESSION: Stable bilateral screening mammogram. Yearly follow-up mammogram recommended. (A) ASSESSMENT CATEGORY: BIRADS Category 1: Negative. A letter regarding these results will be sent to the patient by the facility within 30 days. Approximately 10% of breast cancers are not detected by mammography. A normal mammogram should not delay biopsy of a clinically suspicious abnormality. [id number] Electronically Signed: Donald Meredith MD at 10:40 EDT ,
== END | disposition home or self-care (01) ==
LOC: OPBI 09:20
PROVIDERS: PCP Family Medicine; Referring Provider Obstetrics & Gynecology; Visit Provider Obstetrics & Gynecology
DX: Z12.31 Encounter for screening mammogram for malignant neoplasm of breast (principal)
CPT/HCPCS: 77063; 77067

== ENCOUNTER → 2025-06-14 | Outpatient (CLI) | payer MEDICARE, OTHER, SELFPAY ==
--- NOTE | 2025-06-14 | BI_ITS ---
EXAM: BI/SCRN MAMM (CAD)W/TERI BILAT
== END | disposition home or self-care (01) ==
LOC: OPBI 09:54
PROVIDERS: PCP Family Medicine; Referring Provider Obstetrics & Gynecology; Visit Provider Obstetrics & Gynecology
DX: Z12.31 Encounter for screening mammogram for malignant neoplasm of breast (principal); Z80.3 Family history of malignant neoplasm of breast
CPT/HCPCS: 77063; 77067

== ENCOUNTER → 2025-06-16 | Outpatient (CLI) | payer MEDICARE, OTHER, SELFPAY ==
--- NOTE | 2025-06-16 13:55 | BI_ITS ---
EXAM: BI/Lt Brst Gabriela Murray Add On
--- NOTE | 2025-06-16 13:55 | BI_ITS ---
EXAM: BI/DIAG MAMM W/CAD, UNILAT
--- NOTE | 2025-06-16 13:56 | US_ITS ---
EXAM: US/Breast Limited Unilateral
== END | disposition home or self-care (01) ==
LOC: OPBI 13:51
PROVIDERS: PCP Family Medicine; Referring Provider Obstetrics & Gynecology; Visit Provider Obstetrics & Gynecology
DX: N63.22 Unspecified lump in the left breast, upper inner quadrant (principal); R92.8 Other abnormal and inconclusive findings on diagnostic imaging of breast; R92.30 Dense breasts, unspecified
CPT/HCPCS: 76642; 77061; 77065; G0279